=== PATIENT | male | born 1960 | race Caucasian/White ===

== ENCOUNTER 2022-03-16 18:52 | Inpatient (IN) | payer OTHER ==
[2022-03-16] MEDS ORDERED: ONDANSETRON 4 MG/2 ML INJ IV ONE (20:06)
[2022-03-16] MEDS ORDERED: SODIUM CHLORIDE 0.9% 500 ML 500 ML IV ONE (20:06)
--- NOTE | 2022-03-16 20:52 | XRay Report ---
CHEST 1 VIEW 03/16/2022 8:15 PM INDICATION / CLINICAL INFORMATION: Weakness. COMPARISON: None available. FINDINGS: SUPPORT DEVICES: None. HEART / MEDIASTINUM: No significant abnormality. LUNGS / PLEURA: No significant pulmonary abnormality. No significant pleural effusion. No pneumothora x. ADDITIONAL FINDINGS: No significant additional findings. IMPRESSION: 1. No acute abnormality of the chest. Signer Name: Leobardo Hui MD Signed: 03/16/2022 8:47 PM Workstation Name: [id number]
[2022-03-16 21:03] LABS: Basophils % (Auto) 0.1 % (0.0-1.8); Eosinophils % (Auto) 0.1 % (0.0-4.3); Hematocrit 39.9 % (35.5-45.6); Hemoglobin 13.4 gm/dl (11.8-15.2); Lymphocytes # (Auto) 0.9 K/mm3 (1.2-5.4); Lymphocytes % (Auto) 10.8 % (13.4-35.0); Mean Corpuscular HGB Conc 34 % (32-34); Mean Corpuscular Volume 93 fl (84-94); Monocytes # (Auto) 0.4 K/mm3 (0.0-0.8); Monocytes % (Auto) 5.3 % (0.0-7.3); Platelet Count 151 K/mm3 (140-440); Red Blood Count 4.31 M/mm3 (3.65-5.03); Red Cell Distribution Width 13.5 % (13.2-15.2)
[2022-03-16 21:32] LABS: Alanine Aminotransferase 74 units/L (7-56); BUN/Creatinine Ratio 13; Blood Urea Nitrogen 13 mg/dL (9-20); Calcium 9.3 mg/dL (8.4-10.2); Hemolysis Index 40
[2022-03-16] MEDS ORDERED: ASPIRIN 325 MG TAB PO ONE (22:32)
--- NOTE | 2022-03-16 22:32 | Emergency Department Report ---
ED General Adult HPI - General Chief complaint: Recheck/Abnormal Lab/Rx Stated complaint: ABNORMAL EKG Time Seen by Provider: 03/16/22 20:02 Source: patient, family Mode of arrival: Ambulatory Limitations: Language Barrier - History of Present Illness Initial comments: pt's daughter states pt has been vomiting x3 days, approx TID. Pt was seen at PCP and Friday. Was sent to the ED due to "abnormal EKG" pt was sent with copy of EKG that was completed 03/16/22 at 16:27. pt hs 61 years old john platt with DM and HTN was seen in clinic today and was sent here for abnormal ekg not chest pain , had negative covid PCR today -: Gradual, days(s) Severity scale (0 -10): 0 Improves with: none Worsens with: none Associated Symptoms: denies: denies other symptoms, confusion, chest pain Treatments Prior to Arrival: none - Related Data Allergies Allergy/AdvReac Type Severity Reaction Status Date / Time No Known Allergies Allergy Unverified 03/16/22 19:42 ED Review of Systems ROS: Stated complaint: ABNORMAL EKG Other details as noted in HPI Constitutional: denies: chills, fever Eyes: denies: eye pain, eye discharge, vision change ENT: denies: ear pain, throat pain Respiratory: denies: cough, shortness of breath, wheezing Cardiovascular: denies: chest pain, palpitations Endocrine: no symptoms reported Gastrointestinal: denies: abdominal pain, nausea, diarrhea Genitourinary: denies: urgency, dysuria Musculoskeletal: denies: back pain, joint swelling, arthralgia Skin: denies: rash, lesions Neurological: denies: headache, weakness, paresthesias Psychiatric: denies: anxiety, depression Hematological/Lymphatic: denies: easy bleeding, easy bruising ED Past Medical Hx - Past Medical History Previous Medical History?: Yes Hx Hypertension: Yes Hx Diabetes: Yes - Surgical History Past Surgical History?: No - Social History Smoking Status: Never Smoker Substance Use Type: None ED Physical Exam - General Limitations: Language Barrier General appearance: alert, in no apparent distress - Head Head exam: Present: atraumatic, normocephalic - Eye Eye exam: Present: normal appearance - ENT ENT exam: Present: mucous membranes moist - Neck Neck exam: Present: normal inspection - Respiratory Respiratory exam: Present: normal lung sounds bilaterally. Absent: respiratory distress - Cardiovascular Cardiovascular Exam: Present: regular rate, normal rhythm. Absent: systolic murmur, diastolic murmur, rubs, gallop - GI/Abdominal GI/Abdominal exam: Present: soft, normal bowel sounds - Rectal Rectal exam: Present: deferred - Extremities Exam Extremities exam: Present: normal inspection - Back Exam Back exam: Present: normal inspection - Neurological Exam Neurological exam: Present: alert, oriented X3 - Psychiatric Psychiatric exam: Present: normal affect, normal mood - Skin Skin exam: Present: warm, dry, intact, normal color. Absent: rash ED Course Vital Signs 03/16/22 03/16/22 03/16/22 19:35 19:44 20:46 Temperature 98.0 F 98.0 F Pulse Rate 76 83 Respiratory 18 23 Rate Blood Pressure 140/71 148/77 [Right] O2 Sat by Pulse 98 95 Oximetry ED Medical Decision Making - Lab Data Result diagrams: 03/16/22 20:41 03/16/22 20:41 - EKG Data -: EKG Interpreted by Me EKG shows normal: sinus rhythm - EKG Data Interpretation: nonspecific ST-T wave natividad, other (LAE , RBBB) - Radiology Data Radiology results: report reviewed, image reviewed - Medical Decision Making intial EKG showed possible Stemi, spoke with dr dacosta and sent him the EKG , pt doesn;t have chest pain , and no reciprocal changes, will admit for obs and card consult Critical care attestation.: If time is entered above; I have spent that time in minutes in the direct care of this critically ill patient, excluding procedure time. ED Disposition Clinical Impression: Abnormal EKG, Vomiting, CHF (congestive heart failure) Disposition: ADMITTED INPATIENT Is pt being admited?: Yes Does the pt Need Aspirin: Yes Condition: Stable
[2022-03-16] MEDS ORDERED: MORPHINE 2 MG/1 ML INJ IV PRN (22:33)
[2022-03-16] MEDS ORDERED: ONDANSETRON 4 MG/2 ML INJ IV PRN (22:33)
[2022-03-16] MEDS ORDERED: DEXTROSE 50% IN WATER (25GM) 50 ML SYRINGE IV PRN (22:33)
[2022-03-16] MEDS ORDERED: MORPHINE 4 MG/1 ML INJ IV PRN (22:33)
[2022-03-16] MEDS ORDERED: ACETAMINOPHEN 325 MG TAB PO PRN (22:33)
[2022-03-16] MEDS ORDERED: MAGNESIUM HYDROXIDE (MOM) ORAL LIQD UDC PO PRN (22:33)
--- NOTE | 2022-03-16 22:46 | History and Physical Report ---
History of Present Illness Date of examination: 03/16/22 Date of admission: 03/16/2022 Chief complaint: Nausea and Vomiting History of present illness: 61-year-old Bengali male with past medical history of hypertension and diabetes mellitus presenting in the emergency room today complaining of nausea and vomiting which has been ongoing for the past 3 days. He denies having any abdominal pain. Denies any fever or chills, denies any headache or dizziness and no diaphoresis. Patient denies any chest pain or shortness of breath. Patient denies any sick contacts and no recent travel. Denies any contact with anyone with COVID-19. Patient has been fully vaccinated against COVID-19. Most of the history was given by daughter who was able to interpret as patient does not speak Sami. Patient was seen evaluated in the clinic today and was sent to the emergency room by his primary care physician for abnormal EKG. Chest x-ray reveals no acute abnormality. Labs are reviewed shows elevated liver enzymes, alkaline phos and LDH. CT abdomen and pelvis still pending. Past History Past Medical History: diabetes, hypertension Past Surgical History: Other (Removal of Kidney stone) Social history: no significant social history Family history: no significant family history Medications and Allergies Allergies Allergy/AdvReac Type Severity Reaction Status Date / Time No Known Allergies Allergy Verified 03/16/22 22:43 Home Medications Medication Instructions Recorded Confirmed Last Taken Type Losartan [Cozaar] 50 mg PO QDAY 03/17/22 03/17/22 1 Day Ago History ~03/16/22 50 mg Metformin HCl [metFORMIN] 1,000 mg PO DAILY 03/17/22 03/17/22 1 Day Ago History ~03/16/22 1000 mg Rosuvastatin Calcium 20 mg PO DAILY 03/17/22 03/17/22 1 Day Ago History ~03/16/22 20 mg Review of Systems Constitutional: no fever, no chills Ears, nose, mouth and throat: no nasal congestion, no sore throat Cardiovascular: no chest pain, no orthopnea, no palpitations Respiratory: no cough, no shortness of breath Genitourinary Male: no dysuria, no hematuria, no flank pain Musculoskeletal: no neck pain, no low back pain Integumentary: no rash, no pruritis Neurological: no headaches, no confusion Psychiatric: no anxiety, no depression Endocrine: no polyphagia, no polydipsia, no polyuria, no nocturia Exam - Constitutional Vitals: Temp Pulse Resp BP Pulse Ox 98.0 F 83 23 148/77 95 03/16/22 19:44 03/16/22 20:46 03/16/22 20:46 03/16/22 20:46 03/16/22 20:46 General appearance: Present: no acute distress, well-nourished - EENT Eyes: Present: PERRL, EOM intact. Absent: scleral icterus ENT: hearing intact, clear oral mucosa, dentition normal - Neck Neck: Present: supple, normal ROM - Respiratory Respiratory effort: normal Respiratory: bilateral: CTA - Cardiovascular Rhythm: regular Heart Sounds: Present: S1 & S2. Absent: gallop, systolic murmur, diastolic murmur, rub, click - Extremities Extremities: no ischemia, pulses intact, pulses symmetrical, No edema, normal temperature, normal color, Full ROM Peripheral Pulses: within normal limits - Abdominal General gastrointestinal: Present: soft, non-tender, non-distended, normal bowel sounds. Absent: mass - Integumentary Integumentary: Present: clear, warm, dry, normal turgor. Absent: rash - Musculoskeletal Musculoskeletal: strength equal bilaterally - Psychiatric Psychiatric: appropriate mood/affect, intact judgment & insight, memory intact, cooperative - Neurologic Neurologic: CNII-XII intact, no focal deficits, moves all extremities HEART Score - HEART Score Troponin: Troponin T < 0.010 ng/mL (0.00-0.029) 03/16/22 20:41 Results - Labs CBC & Chem 7: 03/16/22 20:41 03/16/22 20:41 Labs: Abnormal lab results 03/16/22 03/16/22 03/16/22 Range/Units 20:41 20:41 20:41 Lymph % (Auto) 10.8 L (13.4-35.0) % Lymph # (Auto) 0.9 L (1.2-5.4) K/mm3 Seg Neutrophils % 83.7 H (40.0-70.0) % Carbon Dioxide 17 L (22-30) mmol/L Glucose 114 H (75-100) mg/dL Magnesium 1.60 L (1.7-2.3) mg/dL AST 69 H (5-40) units/L ALT 74 H (7-56) units/L Alkaline Phosphatase 208 H (35-129) units/L Lactate Dehydrogenase 205 H (91-180) units/L Total Creatine Kinase 307 H (55-170) units/L NT-Pro-B Natriuret Pep 2560 H (0-900) pg/mL Total Protein 6.2 L (6.3-8.2) g/dL Lipase 79 H (13-60) units/L Assessment and Plan - Patient Problems (1) CHF (congestive heart failure) Current Visit: No Status: Inactive Plan to address problem: Place patient on diuretics. We will monitor input and output and also monitor daily weight. She will be scheduled for echocardiogram. Consult placed to cardiology for evaluation. (2) Abnormal EKG Current Visit: No Status: Inactive Plan to address problem: Will await further evaluation by cardiology. (3) Vomiting Current Visit: No Status: Inactive Plan to address problem: Etiology is unclear. Patient placed on antiemetic and IV fluid.. Please consult to gastroenterology for evaluation in view of the abnormal LFTs.. (4) Hypertension Current Visit: No Status: Acute Plan to address problem: We will resume routine medications and monitor vital signs closely. (5) Diabetes mellitus Current Visit: No Status: Acute Plan to address problem: Patient placed on sliding scale insulin. We will monitor Accu-Cheks. (6) DVT prophylaxis Current Visit: No Status: Acute Plan to address problem: Patient placed on subcutaneous heparin. (7) Full code status Current Visit: No Status: Acute Plan to address problem: Patient is full code.
[2022-03-17 04:55] LABS: Bilirubin,Urine NEG (Negative); Blood,Urine MOD (Negative); Color,Urine Colorless (Yellow); Hyaline Casts,Urine 1 /LPF; RBC,Urine < 1.0 /HPF (0.0-6.0); Urobilinogen,Urine < 2.0 mg/dL (<2.0)
[2022-03-17] MEDS: FUROSEMIDE 40 MG/4 ML INJ IV SCH ×2 (05:54→21:23)
[2022-03-17] MEDS: INSULIN REGULAR, HUMAN 100 UNITS/1 ML SUB-Q SCH ×4 (08:45→23:44)
[2022-03-17 10:03] LABS: Calcium 6.8 mg/dL (8.4-10.2)
--- NOTE | 2022-03-17 10:16 | Consultation ---
History of Present Illness - Reason for Consult Consult date: 03/17/22 Abnormal LFTs Requesting physician: SHYANNE CALLEJAS - History of Present Illness Mr. 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 He initially presented to his PCP with a 3-day history of intermittent nausea and vomiting occurring approximately 3 times a day. There was no abdominal pain. Symptoms appear to be associated with p.o. intake. He also had some fatigue as well as mild chills, symptoms all starting on March 14. He denies any prior similar symptoms. There was no GI bleeding. He is not aware of a fever though there may have been a low-grade 1. He does complain of hiccups now. Currently, he is feeling well. Bowel movements are regular on a daily basis without any change. Of note, patient is status postcholecystectomy for gallstones over 6 years ago. He denies any known history of hepatitis or liver disease. History is obtained from his daughter who is doing the translating. Past History Past Medical History: diabetes, hypertension, hyperlipidemia Past Surgical History: cholecystectomy, Other (Removal of Kidney stone -with left flank incision) Social history: no significant social history Family history: no significant family history Medications and Allergies Allergies Allergy/AdvReac Type Severity Reaction Status Date / Time No Known Allergies Allergy Verified 03/16/22 22:43 Home Medications Medication Instructions Recorded Confirmed Last Taken Type Losartan [Cozaar] 50 mg PO QDAY 03/17/22 03/17/22 1 Day Ago History ~03/16/22 50 mg Metformin HCl [metFORMIN] 1,000 mg PO DAILY 03/17/22 03/17/22 1 Day Ago History ~03/16/22 1000 mg Rosuvastatin Calcium 20 mg PO DAILY 03/17/22 03/17/22 1 Day Ago History ~03/16/22 20 mg Active Meds: Active Medications Acetaminophen (Acetaminophen 325 Mg Tab) 650 mg PO Q4H PRN PRN Reason: Pain MILD(1-3)/Fever >100.5/DIAZ Dextrose (Dextrose 50% In Water (25gm) 50 Ml Syringe) 50 ml IV Q30MIN PRN; Protocol PRN Reason: Hypoglycemia Furosemide (Furosemide 40 Mg/4 Ml Inj) 40 mg IV BID@0600,1800 N[facility] Last Admin: 03/17/22 05:54 Dose: 40 mg Insulin Human Regular (Insulin Regular, Human 100 Units/1 Ml) 0 units SUB-Q ACHS NICK; Protocol Last Admin: 03/17/22 08:45 Dose: Not Given Magnesium Hydroxide (Magnesium Hydroxide (Mom) Oral Liqd Udc) 30 ml PO Q4H PRN PRN Reason: Constipation Morphine Sulfate (Morphine 2 Mg/1 Ml Inj) 2 mg IV Q4H PRN PRN Reason: Pain, Moderate (4-6) Morphine Sulfate (Morphine 4 Mg/1 Ml Inj) 4 mg IV Q4H PRN PRN Reason: Pain , Severe (7-10) Ondansetron HCl (Ondansetron 4 Mg/2 Ml Inj) 4 mg IV Q8H PRN PRN Reason: Nausea And Vomiting Last Admin: 03/17/22 01:15 Dose: 4 mg Sodium Chloride (Sodium Chloride 0.9% 10 Ml Flush Syringe) 10 ml IV BID NICK Sodium Chloride (Sodium Chloride 0.9% 10 Ml Flush Syringe) 10 ml IV PRN PRN PRN Reason: LINE FLUSH Review of Systems All systems: negative (As per HPI) Exam - Constitutional Vitals: Temp Pulse Resp BP Pulse Ox 98.6 F 76 16 137/71 99 03/17/22 07:31 03/17/22 07:31 03/17/22 07:31 03/17/22 07:31 03/17/22 07:31 General appearance: Present: no acute distress - EENT Eyes: Present: PERRL, EOM intact. Absent: scleral icterus ENT: hearing intact - Respiratory Respiratory effort: normal Respiratory: bilateral: CTA - Cardiovascular Rhythm: regular Heart Sounds: Present: S1 & S2 - Extremities Extremities: No edema - Abdominal General gastrointestinal: Present: soft, non-tender Results - Labs CBC & Chem 7: 03/16/22 20:41 03/17/22 07:29 Labs: Abnormal lab results 03/16/22 03/16/22 03/16/22 Range/Units 20:41 20:41 20:41 Lymph % (Auto) 10.8 L (13.4-35.0) % Lymph # (Auto) 0.9 L (1.2-5.4) K/mm3 Seg Neutrophils % 83.7 H (40.0-70.0) % Sodium (137-145) mmol/L Chloride (98-107) mmol/L Carbon Dioxide 17 L (22-30) mmol/L BUN (9-20) mg/dL Creatinine (0.8-1.3) mg/dL Glucose 114 H (75-100) mg/dL Calcium (8.4-10.2) mg/dL Magnesium 1.60 L (1.7-2.3) mg/dL AST 69 H (5-40) units/L ALT 74 H (7-56) units/L Alkaline Phosphatase 208 H (35-129) units/L Lactate Dehydrogenase 205 H (91-180) units/L Total Creatine Kinase 307 H (55-170) units/L NT-Pro-B Natriuret Pep 2560 H (0-900) pg/mL Total Protein 6.2 L (6.3-8.2) g/dL Lipase 79 H (13-60) units/L 05// Range/Units 07:29 Lymph % (Auto) (13.4-35.0) % Lymph # (Auto) (1.2-5.4) K/mm3 Seg Neutrophils % (40.0-70.0) % Sodium 111 L* D (137-145) mmol/L Chloride 76.5 L (98-107) mmol/L Carbon Dioxide 7 L* D (22-30) mmol/L BUN 74 H (9-20) mg/dL Creatinine 7.9 H D (0.8-1.3) mg/dL Glucose 63 L (75-100) mg/dL Calcium 6.8 L D (8.4-10.2) mg/dL Magnesium (1.7-2.3) mg/dL AST (5-40) units/L ALT (7-56) units/L Alkaline Phosphatase (35-129) units/L Lactate Dehydrogenase (91-180) units/L Total Creatine Kinase (55-170) units/L NT-Pro-B Natriuret Pep (0-900) pg/mL Total Protein (6.3-8.2) g/dL Lipase (13-60) units/L Assessment and Plan 1. Abnormal liver enzymesalong with 3-day history of nausea and vomiting. Symptoms concerning for possible choledocholithiasis. Acute viral illness with nausea, vomiting and abnormal liver enzymes is also a consideration. Currently, patient is doing well. -Check MRCP -Check viral serologies -Advance diet, and monitor liver enzyme 2. Abnormal BMPprobably a mistake and will need to be repeated since these numbers are extremely abnormal and inconsistent with a normal BMP from yesterday , especially as the patient is doing well clinically.
--- NOTE | 2022-03-17 10:42 | Consultation ---
History of Present Illness Consult date: 03/17/22 Consult reason: congestive heart failure History of present illness: 61-year-old male with past medical history of hypertension and diabetes for whom cardiology consultation is requested for elevated BNP. Daughter at bedside provides history. Patient reports vomiting and decreased p.o. intake. He denies any chest pain, shortness of breath, palpitations, or leg swelling. He has no prior cardiac history. Work-up in the ED notable for EKG without acute ischemic changes, troponin x1 negative, BNP elevated 2560, elevated LFTs, and lipase 79. Past History Past Medical History: diabetes, hypertension, hyperlipidemia Past Surgical History: cholecystectomy, Other (Removal of Kidney stone -with left flank incision) Social history: no significant social history Family history: no significant family history Medications and Allergies Allergies Allergy/AdvReac Type Severity Reaction Status Date / Time No Known Allergies Allergy Verified 03/16/22 22:43 Home Medications Medication Instructions Recorded Confirmed Last Taken Type Losartan [Cozaar] 50 mg PO QDAY 03/17/22 03/17/22 1 Day Ago History ~03/16/22 50 mg Metformin HCl [metFORMIN] 1,000 mg PO DAILY 03/17/22 03/17/22 1 Day Ago History ~03/16/22 1000 mg Rosuvastatin Calcium 20 mg PO DAILY 03/17/22 03/17/22 1 Day Ago History ~03/16/22 20 mg Active Meds: Active Medications Acetaminophen (Acetaminophen 325 Mg Tab) 650 mg PO Q4H PRN PRN Reason: Pain MILD(1-3)/Fever >100.5/DIAZ Dextrose (Dextrose 50% In Water (25gm) 50 Ml Syringe) 50 ml IV Q30MIN PRN; Protocol PRN Reason: Hypoglycemia Furosemide (Furosemide 40 Mg/4 Ml Inj) 40 mg IV BID@0600,1800 [facility] Last Admin: 03/17/22 05:54 Dose: 40 mg Insulin Human Regular (Insulin Regular, Human 100 Units/1 Ml) 0 units SUB-Q ACHS [facility]; Protocol Last Admin: 03/17/22 08:45 Dose: Not Given Magnesium Hydroxide (Magnesium Hydroxide (Mom) Oral Liqd Udc) 30 ml PO Q4H PRN PRN Reason: Constipation Morphine Sulfate (Morphine 2 Mg/1 Ml Inj) 2 mg IV Q4H PRN PRN Reason: Pain, Moderate (4-6) Morphine Sulfate (Morphine 4 Mg/1 Ml Inj) 4 mg IV Q4H PRN PRN Reason: Pain , Severe (7-10) Ondansetron HCl (Ondansetron 4 Mg/2 Ml Inj) 4 mg IV Q8H PRN PRN Reason: Nausea And Vomiting Last Admin: 03/17/22 01:15 Dose: 4 mg Sodium Chloride (Sodium Chloride 0.9% 10 Ml Flush Syringe) 10 ml IV BID NICK Sodium Chloride (Sodium Chloride 0.9% 10 Ml Flush Syringe) 10 ml IV PRN PRN PRN Reason: LINE FLUSH Physical Examination Vital Signs Temp 98.0 F 03/16/22 19:35 Narrative exam: Gen-NAD, cooperative HEENT - normcephalic, atraumatic CV-RRR, no murmur Lungs-CTAB, no increased WOB Abd-soft/nt/nd Ext-no edema, warm to touch Neuro-alert and oriented, no focal deficits noted Psych-affect appropriate Results 03/16/22 20:41 03/17/22 07:29 Cardiac Enzymes 03/16/22 03/16/22 Range/Units 20:41 20:41 AST 69 H (5-40) units/L Lactate Dehydrogenase 205 H (91-180) units/L CBC 03/16/22 Range/Units 20:41 WBC 8.4 (4.5-11.0) K/mm3 RBC 4.31 (3.65-5.03) M/mm3 Hgb 13.4 (11.8-15.2) gm/dl Hct 39.9 (35.5-45.6) % Plt Count 151 (140-440) K/mm3 Lymph # (Auto) 0.9 L (1.2-5.4) K/mm3 Gates # (Auto) 0.4 (0.0-0.8) K/mm3 Eos # (Auto) 0.0 (0.0-0.4) K/mm3 Baso # (Auto) 0.0 (0.0-0.1) K/mm3 Comprehensive Metabolic Panel 03/16/22 03/17/22 Range/Units 20:41 07:29 Sodium 140 111 L* D (137-145) mmol/L Potassium 4.9 4.7 (3.6-5.0) mmol/L Chloride 104.8 76.5 L (98-107) mmol/L Carbon Dioxide 17 L 7 L* D (22-30) mmol/L BUN 13 74 H (9-20) mg/dL Creatinine 1.0 7.9 H D (0.8-1.3) mg/dL Glucose 114 H 63 L (75-100) mg/dL Calcium 9.3 6.8 L D (8.4-10.2) mg/dL AST 69 H (5-40) units/L ALT 74 H (7-56) units/L Alkaline Phosphatase 208 H (35-129) units/L Total Protein 6.2 L (6.3-8.2) g/dL Albumin 4.0 (3.9-5) g/dL Telemetrysinus rhythm 03/16/2022 EKGsinus rhythm, bifascicular block (RBBB + LPFB), lateral T wave inversion Assessment and Plan #Elevated BNP #Bifascicular block on EKG (RBBB + LPFB) #Vomitinglipase elevated #Abnormal LFTs #Hypertension #Diabetes Await echocardiogram. Agree with IV diuresis; monitor renal function. Unclear if labs drawn today are accurate; RN notifying primary team. Agree with GI consult for abdominal symptoms.
[2022-03-17 11:41] LABS: Calcium 6.8 mg/dL (8.4-10.2)
--- NOTE | 2022-03-17 12:14 | Cat Scan Report ---
CT ABDOMEN AND PELVIS WITH CONTRAST INDICATION: Nausea and vomiting, abdominal LFTs. TECHNIQUE: Axial CT images were obtained through the abdomen and pelvis after IV contrast. All CT scans at this location are performed using CT dose reduction for ALARA by means of automated exposure control. COMPARISON: None available. FINDINGS: LOWER CHEST: Tiny bilateral pleural effusions. LIVER: No significant abnormality. GALLBLADDER: Surgically absent BILE DUCTS: No significant abnormality. PANCREAS: No significant abnormality. SPLEEN: No significant abnormality. ADRENALS: No significant abnormality. RIGHT KIDNEY and URETER: Nonobstructing 5 mm intrarenal stone LEFT KIDNEY and URETER: Nonobstructing 5 mm intrarenal stone. Mild left hydronephrosis STOMACH and SMALL BOWEL: No significant abnormality. COLON: No significant abnormality. APPENDIX: No significant abnormality. PERITONEUM: No free fluid. No free air. No fluid collection. LYMPH NODES: No significant adenopathy. AORTA and ARTERIES: Moderate vascular calcifications nonaneurysmal aorta IVC and VEINS: No significant abnormality. URINARY BLADDER: No significant abnormality. REPRODUCTIVE ORGANS: No significant abnormality. ADDITIONAL FINDINGS: None. SKELETAL SYSTEM: No significant abnormality. IMPRESSION: 1. Bilateral nephrolithiasis. 2. Mild left hydronephrosis without visualized ureteral stone may be secondary to recently passed sto ne. 3. Tiny bilateral pleural effusions. Signer Name: Tyrone Patel MD Signed: 03/17/2022 12:09 PM Workstation Name: [id number]
[2022-03-17 13:04] LABS: Hepatitis B Surface Antigen Non-Reactive (Negative); Hepatitis C Virus Antibody Non-Reactive (NonReactive)
[2022-03-17] MEDS ORDERED: SODIUM CHLORIDE 0.9% 1000 ML 1,000 ML IV ONE (14:00)
[2022-03-17] MEDS ORDERED: SODIUM CHLORIDE 0.9% 1000 ML 1,000 ML IV SCH (15:00)
--- NOTE | 2022-03-17 15:33 | Progress Note ---
Assessment and Plan 61-year-old Lebanese male with past medical history of hypertension and diabetes mellitus presenting in the emergency room today complaining of nausea and vomiting which has been ongoing for the past 3 days. Work-up in the ED notable for EKG without acute ischemic changes, troponin x1 negative, BNP elevated 2560, elevated LFTs, and lipase 79. BMP this morning shows sodium 111, creatinine 7.9. Assessment and plan: #Severe hyponatremia #CLARISSA, possible ATN #Elevated BNP #Bifascicular block on EKG (RBBB + LPFB) #Nausea and vomitinglipase elevated #Abnormal LFTs #Hypertension #Diabetes Await echocardiogram. Placed on IV fluid; monitor renal function. Unclear if labs drawn today are accurate; consulted nephrology Follow BMP every 6 hours Subjective Date of service: 03/17/22 Interval history: Patient seen and examined. Medical records and medication list reviewed. No acute event overnight noted by the RN. Patient denies any chest pain or difficulty breathing. No nausea or vomiting today Discussed plan of care at bedside with patient's daughter. Objective - Exam Narrative Exam: GENERAL: well-developed and well-nourished male lying on bed appeared to be in no discomfort. HEENT: Normocephalic. Atraumatic. No conjunctival congestion or icterus. Patient has moist mucous membranes. NECK: Supple. Trachea midline. CHEST/LUNGS: Clear to auscultated bilaterally, breathing nonlabored. No wheezes crackles or rhonchi. HEART/CARDIOVASCULAR: Regular in rate and rhythm. S1 and S2 positive. ABDOMEN: Abdomen is soft, nontender. Patient has normal bowel sounds. SKIN: There is no rash. Warm and dry. NEURO: No focal motor deficit. Follows command. MUSCULOSKELETAL: No joint effusion or tenderness. EXTRIMITY: No edema, no cyanosis or clubbing. PSYCH: Cooperative. - Constitutional Vitals: Vital Signs - 12hr 03/17/22 03/17/22 03/17/22 04:11 07:31 07:32 Temperature 97.8 F 98.6 F Pulse Rate 74 76 79 Respiratory 15 16 Rate Blood Pressure 125/65 137/71 O2 Sat by Pulse 100 99 Oximetry 03/17/22 03/17/22 03/17/22 10:00 10:51 11:32 Temperature 98.2 F Pulse Rate 79 79 Respiratory 18 Rate Blood Pressure 132/69 O2 Sat by Pulse 100 97 Oximetry - Labs CBC & Chem 7: 03/16/22 20:41 03/18/22 04:12 Labs: Abnormal lab results 03/16/22 03/16/22 03/16/22 Range/Units 20:41 20:41 20:41 Lymph % (Auto) 10.8 L (13.4-35.0) % Lymph # (Auto) 0.9 L (1.2-5.4) K/mm3 Seg Neutrophils % 83.7 H (40.0-70.0) % Sodium (137-145) mmol/L Potassium (3.6-5.0) mmol/L Chloride (98-107) mmol/L Carbon Dioxide 17 L (22-30) mmol/L BUN (9-20) mg/dL Creatinine (0.8-1.3) mg/dL Glucose 114 H (75-100) mg/dL POC Glucose (70-105) mg/dL Calcium (8.4-10.2) mg/dL Magnesium 1.60 L (1.7-2.3) mg/dL AST 69 H (5-40) units/L ALT 74 H (7-56) units/L Alkaline Phosphatase 208 H (35-129) units/L Lactate Dehydrogenase 205 H (91-180) units/L Total Creatine Kinase 307 H (55-170) units/L NT-Pro-B Natriuret Pep 2560 H (0-900) pg/mL Total Protein 6.2 L (6.3-8.2) g/dL Lipase 79 H (13-60) units/L 03/17/22 03/17/22 03/17/22 Range/Units 07:28 07:29 10:46 Lymph % (Auto) (13.4-35.0) % Lymph # (Auto) (1.2-5.4) K/mm3 Seg Neutrophils % (40.0-70.0) % Sodium 111 L* D (137-145) mmol/L Potassium (3.6-5.0) mmol/L Chloride 76.5 L (98-107) mmol/L Carbon Dioxide 7 L* D (22-30) mmol/L BUN 74 H (9-20) mg/dL Creatinine 7.9 H D (0.8-1.3) mg/dL Glucose 63 L (75-100) mg/dL POC Glucose 62 L 68 L (70-105) mg/dL Calcium 6.8 L D (8.4-10.2) mg/dL Magnesium (1.7-2.3) mg/dL AST (5-40) units/L ALT (7-56) units/L Alkaline Phosphatase (35-129) units/L Lactate Dehydrogenase (91-180) units/L Total Creatine Kinase (55-170) units/L NT-Pro-B Natriuret Pep (0-900) pg/mL Total Protein (6.3-8.2) g/dL Lipase (13-60) units/L 03/17/22 Range/Units 10:47 Lymph % (Auto) (13.4-35.0) % Lymph # (Auto) (1.2-5.4) K/mm3 Seg Neutrophils % (40.0-70.0) % Sodium 111 L* (137-145) mmol/L Potassium 5.8 H D (3.6-5.0) mmol/L Chloride 75.7 L (98-107) mmol/L Carbon Dioxide 12 L (22-30) mmol/L BUN 74 H (9-20) mg/dL Creatinine 7.9 H (0.8-1.3) mg/dL Glucose 67 L (75-100) mg/dL POC Glucose (70-105) mg/dL Calcium 6.8 L (8.4-10.2) mg/dL Magnesium (1.7-2.3) mg/dL AST (5-40) units/L ALT (7-56) units/L Alkaline Phosphatase (35-129) units/L Lactate Dehydrogenase (91-180) units/L Total Creatine Kinase (55-170) units/L NT-Pro-B Natriuret Pep (0-900) pg/mL Total Protein (6.3-8.2) g/dL Lipase (13-60) units/L HEART Score - HEART Score Troponin: Troponin T < 0.010 ng/mL (0.00-0.029) 03/16/22 20:41
[2022-03-17 15:42] LABS: Calcium 7.1 mg/dL (8.4-10.2)
[2022-03-17] MEDS: SODIUM CHLORIDE 0.9% 1000 ML 1,000 ML IV SCH (19:45)
[2022-03-17 20:13] LABS: BUN/Creatinine Ratio TNR; Blood Urea Nitrogen TNR mg/dL (9-20)
[2022-03-17 20:14] LABS: Calcium TNR mg/dL (8.4-10.2); Hemolysis Index TNR
[2022-03-17 22:57] LABS: Calcium 6.9 mg/dL (8.4-10.2)
[2022-03-18 05:36] LABS: Calcium 7.1 mg/dL (8.4-10.2)
[2022-03-18] MEDS: FUROSEMIDE 40 MG/4 ML INJ IV SCH (06:47)
[2022-03-18] MEDS: SODIUM CHLORIDE 0.9% 1000 ML 1,000 ML IV SCH ×2 (06:52→23:17)
[2022-03-18] MEDS: INSULIN REGULAR, HUMAN 100 UNITS/1 ML SUB-Q SCH ×4 (08:55→21:45)
--- NOTE | 2022-03-18 10:04 | Magnetic Resonance Report ---
MR ABDOMEN MRCP HISTORY: Abnormal liver enzymes, nausea, vomiting TECHNIQUE: Multisequence, multiplanar MRI without contrast. Coronal thin collimation MRCP images and radial MRCP images. COMPARISON: CT abdomen pelvis with contrast performed the same day FINDINGS: The gallbladder has been surgically removed. No biliary dilatation is appreciated. The common bile du ct measures 4-5 mm in diameter. There is no evidence for stricture or choledocholithiasis. The intrah epatic biliary ducts and pancreatic duct are unremarkable. The liver, pancreas, spleen, adrenal glands, and visualized bowel loops are unremarkable. Previously described renal stones are not clearly demonstrated on MRI. There is no evidence for hydronephrosis. There are 3 or 4 simple appearing cysts in the superior left kidney measuring up to 1 cm. No evidence for ascites, adenopathy or inflammatory changes. The vascular structures are patent. Trac e pleural effusions are noted at both lung bases. IMPRESSION: Cholecystectomy. Otherwise unremarkable MRCP. Simple appearing left renal cysts. Trace bilateral pleural effusions. Signer Name: Fidencio Khan Jr, MD Signed: 03/18/2022 9:59 AM Workstation Name: [id number]
--- NOTE | 2022-03-18 10:53 | Consultation ---
History of Present Illness - Reason for Consult Consult date: 03/18/22 acute renal failure, hyponatremia - History of Present Illness The patient is a 61 YO [place] male with past medical history of Hypertension and Diabetes mellitus who presented to [facility] ED 03/16/22 with complaining of nausea and vomiting for about 3 days. Wheel Cleaner line was used to get information but patient is a very poor historian. He denies any abdominal pain, fever or chills, headache, dizziness, weakness, cp or sob. No h/o sick contacts, recent travel and contact with anyone with COVID-19. Patient has been fully vaccinated against COVID-19. Patient was seen at pcp's office and was sent to the Emergency room for abnormal EKG. Chest X-ray revealed no acute abnormality. Labs notable for Creat 7.9, BUN 74, Sodium 111, bicarb [address] abdomen and pelvis showed b/l nephrolithiasis and mild L hydronephrosis. Nephrology was consulted for further evaluation and treatment of CLARISSA. Past History Past Medical History: diabetes, hypertension, hyperlipidemia Past Surgical History: cholecystectomy, Other (Removal of Kidney stone -with left flank incision) Social history: no significant social history Family history: no significant family history Medications and Allergies Allergies Allergy/AdvReac Type Severity Reaction Status Date / Time No Known Allergies Allergy Verified 03/18/22 10:12 Home Medications Medication Instructions Recorded Confirmed Last Taken Type Losartan [Cozaar] 50 mg PO QDAY 03/17/22 03/18/22 1 Day Ago History ~03/16/22 50 mg Metformin HCl [metFORMIN] 1,000 mg PO BID 03/17/22 03/18/22 1 Day Ago History ~03/16/22 1000 mg Rosuvastatin Calcium 20 mg PO DAILY 03/17/22 03/18/22 1 Day Ago History ~03/16/22 20 mg Active Meds: Active Medications Acetaminophen (Acetaminophen 325 Mg Tab) 650 mg PO Q4H PRN PRN Reason: Pain MILD(1-3)/Fever >100.5/DIAZ Dextrose (Dextrose 50% In Water (25gm) 50 Ml Syringe) 50 ml IV Q30MIN PRN; Protocol PRN Reason: Hypoglycemia Sodium Chloride (Nacl 0.9% 1000 Ml) 1,000 mls @ 75 mls/hr IV DIRECT NICK Last Admin: 03/18/22 06:52 Dose: 75 mls/hr Insulin Human Regular (Insulin Regular, Human 100 Units/1 Ml) 0 units SUB-Q ACHS NICK; Protocol Last Admin: 03/18/22 08:55 Dose: Not Given Magnesium Hydroxide (Magnesium Hydroxide (Mom) Oral Liqd Udc) 30 ml PO Q4H PRN PRN Reason: Constipation Morphine Sulfate (Morphine 2 Mg/1 Ml Inj) 2 mg IV Q4H PRN PRN Reason: Pain, Moderate (4-6) Morphine Sulfate (Morphine 4 Mg/1 Ml Inj) 4 mg IV Q4H PRN PRN Reason: Pain , Severe (7-10) Ondansetron HCl (Ondansetron 4 Mg/2 Ml Inj) 4 mg IV Q8H PRN PRN Reason: Nausea And Vomiting Last Admin: 03/17/22 01:15 Dose: 4 mg Sodium Chloride (Sodium Chloride 0.9% 10 Ml Flush Syringe) 10 ml IV BID NICK Last Admin: 03/18/22 10:01 Dose: Not Given Sodium Chloride (Sodium Chloride 0.9% 10 Ml Flush Syringe) 10 ml IV PRN PRN PRN Reason: LINE FLUSH Review of Systems All systems: negative Exam - Vital Signs Vital signs: Vital Signs Temp 98.0 F 03/16/22 19:35 Results - Lab Results 03/19/22 03:47 03/19/22 03:47 Most recent lab results Calcium 7.1 mg/dL (8.4-10.2) L 03/18/22 04:12 Magnesium 1.60 mg/dL (1.7-2.3) L 03/16/22 20:41 Assessment and Plan 1. Acute kidney injury: Admitted with very high creatinine level. Baseline renal function is unknown. Likely vasomotor CLARISSA in the setting of volume depletion. ATN. CT showed b/l nephrolithiasis and mild L hydronephrosis. Urine studies. Continue IV fluids. Monitor renal function. Renal prognosis is guarded. Avoid nephrotoxic agents. Meds dosage based on GFR. Monitor for SPINNER FIXER needs. 2. Hyponatremia: Likely 2/2 volume depletion. Sr and Ur Osm. Continue IV fluids Monitor Sodium level. 3. FEN: Anion-gap metabolic acidosis, 2/2 CLARISSA + Metformin. IV fluids, Sod, bicarb, monitor. Monitor lytes and volume status. 4. DM-2: Monitor. 5. H/o Hypertension: Monitor BP. Subjective: Patient was seen and examined at the bedside. Examination: General appearance: well-developed, appears stated age, thin built, no distress HEENT: atraumatic, pupils equal Neck: trachea midline Respiratory: ctab Heart: S1S2, regular, no murmur Abdomen: soft, bowel sounds heard, NT Integumentary: no obvious rash noted Neurologic: conversing, able to move extremities Ext: no edema noted
--- NOTE | 2022-03-18 11:05 | Gastroenterology Progress Note ---
<WILLI LOCKETT - Last Filed: 03/18/22 11:10> Assessment and Plan 1. Elevated LFTs - recheck labs today, if tending down/stable, suspect elevation was from an acute infection that is resolving - MRCP: read pending 2. N/V - resolved - can start on cardiac diet as tolerated If LFTs are trending down/stable, MRCP read is normal, and pt is tolerating PO intake, GI will sign off Subjective Date of service: 03/18/22 Principal diagnosis: elevated LFTs, N/V Interval history: Pt seen and examined. Laying comfortably in bed. Denies N/V, abd pain. No signs of upper/lower GI bleeding. Pt denies having any food yet. Okay for pt to start eating. Objective - Constitutional Vitals: Temp Pulse Resp BP Pulse Ox 98.1 F 91 H 22 103/60 98 03/18/22 07:17 03/18/22 07:17 03/18/22 07:17 03/18/22 07:17 03/18/22 07:20 General appearance: no acute distress - EENT Eyes: PERRL, EOM intact ENT: hearing intact - Respiratory Respiratory effort: normal - Cardiovascular Rhythm: regular - Extremities Extremities: No edema, normal color, Full ROM - Gastrointestinal General gastrointestinal: Present: soft, non-tender - Integumentary Integumentary: Present: clear, warm, dry - Neurologic Neurological: alert and oriented x3 - Psychiatric Psychiatric: appropriate mood/affect - Labs CBC & Chem 7: 03/16/22 20:41 03/18/22 04:12 Labs: Laboratory Results - last 24 hr 03/17/22 03/17/22 03/17/22 07:29 10:46 10:47 Sodium 111 L* Potassium 5.8 H D Chloride 75.7 L Carbon Dioxide 12 L Anion Gap 29 BUN 74 H Creatinine 7.9 H Estimated GFR 7 BUN/Creatinine Ratio 9 Glucose 67 L POC Glucose 68 L Calcium 6.8 L Hepatitis A IgM Ab Non-reactive Hep Bs Antigen Non-reactive Hep B Core IgM Ab Non-reactive Hepatitis C Antibody Non-reactive 03/17/22 03/17/22 03/17/22 14:29 15:44 19:10 Sodium 110 L* TNR Potassium 6.0 H TNR Chloride 74.4 L TNR Carbon Dioxide 13 L TNR Anion Gap 29 TNR BUN 75 H TNR Creatinine 7.8 H TNR Estimated GFR 7 TNR BUN/Creatinine Ratio 10 TNR Glucose 88 TNR POC Glucose 83 Calcium 7.1 L TNR Hepatitis A IgM Ab Hep Bs Antigen Hep B Core IgM Ab Hepatitis C Antibody 03/17/22 03/17/22 03/18/22 20:52 22:19 04:12 Sodium 119 L* D 122 L Potassium 4.3 D 4.3 Chloride 82.5 L 83.6 L Carbon Dioxide 13 L 15 L Anion Gap 28 28 BUN 72 H 72 H Creatinine 7.3 H 6.9 H Estimated GFR 8 8 BUN/Creatinine Ratio 10 10 Glucose 95 92 POC Glucose 125 H Calcium 6.9 L 7.1 L Hepatitis A IgM Ab Hep Bs Antigen Hep B Core IgM Ab Hepatitis C Antibody 03/18/22 07:11 Sodium Potassium Chloride Carbon Dioxide Anion Gap BUN Creatinine Estimated GFR BUN/Creatinine Ratio Glucose POC Glucose 94 Calcium Hepatitis A IgM Ab Hep Bs Antigen Hep B Core IgM Ab Hepatitis C Antibody <JAC VALDIVIA R - Last Filed: 03/18/22 18:21> Assessment and Plan MRCP negative, and LFTs are normal. Will sign off. Thanks. Objective - Constitutional Vitals: Temp Pulse Resp BP Pulse Ox 98.5 F 77 20 102/60 97 03/18/22 15:59 03/18/22 15:59 03/18/22 15:59 03/18/22 15:59 03/18/22 15:59 - Labs CBC & Chem 7: 03/16/22 20:41 03/18/22 10:33 Labs: Laboratory Results - last 24 hr 03/17/22 03/17/22 03/17/22 15:44 19:10 20:52 Sodium TNR Potassium TNR Chloride TNR Carbon Dioxide TNR Anion Gap TNR BUN TNR Creatinine TNR Estimated GFR TNR BUN/Creatinine Ratio TNR Glucose TNR POC Glucose 83 125 H Osmolality Calcium TNR Total Bilirubin Direct Bilirubin Indirect Bilirubin AST ALT Alkaline Phosphatase Total Protein Albumin Albumin/Globulin Ratio 03/17/22 03/18/22 03/18/22 22:19 04:12 07:11 Sodium 119 L* D 122 L Potassium 4.3 D 4.3 Chloride 82.5 L 83.6 L Carbon Dioxide 13 L 15 L Anion Gap 28 28 BUN 72 H 72 H Creatinine 7.3 H 6.9 H Estimated GFR 8 8 BUN/Creatinine Ratio 10 10 Glucose 95 92 POC Glucose 94 Osmolality Calcium 6.9 L 7.1 L Total Bilirubin Direct Bilirubin Indirect Bilirubin AST ALT Alkaline Phosphatase Total Protein Albumin Albumin/Globulin Ratio 03/18/22 03/18/22 03/18/22 10:33 11:27 12:13 Sodium 126 L Potassium 4.6 Chloride 85.1 L Carbon Dioxide 16 L Anion Gap 30 BUN 69 H Creatinine 6.6 H Estimated GFR 9 BUN/Creatinine Ratio 10 Glucose 104 H POC Glucose 140 H Osmolality 295 Calcium 7.5 L Total Bilirubin 0.40 Direct Bilirubin < 0.2 Indirect Bilirubin 0.2 AST 20 ALT 24 Alkaline Phosphatase 82 Total Protein 8.4 H D Albumin 5.0 Albumin/Globulin Ratio 1.5 03/18/22 15:59 Sodium Potassium Chloride Carbon Dioxide Anion Gap BUN Creatinine Estimated GFR BUN/Creatinine Ratio Glucose POC Glucose 220 H Osmolality Calcium Total Bilirubin Direct Bilirubin Indirect Bilirubin AST ALT Alkaline Phosphatase Total Protein Albumin Albumin/Globulin Ratio
[2022-03-18 11:56] LABS: Alanine Aminotransferase 24 units/L (7-56); Blood Urea Nitrogen 69 mg/dL (9-20); Calcium 7.5 mg/dL (8.4-10.2); Hemolysis Index 7
[2022-03-18 11:57] LABS: BUN/Creatinine Ratio 10; Bilirubin,Direct < 0.2 mg/dL (0-0.2)
--- NOTE | 2022-03-18 12:06 | Progress Note ---
Assessment and Plan - Patient Problems (1) Abnormal ECG Current Visit: Yes Status: Acute Plan to address problem: Patient's ECG abnormalities likely chronic, there are no cardiac complaints at this time, and echocardiogram shows normal left ventricular systolic function with ejection fraction 60 to 65%. No further cardiac work-up is indicated in the absence of cardiac symptoms, but patient needs outpatient cardiac follow-up. We will sign off. I will defer to internal medicine and nephrology for management of the patient's primary presenting hyponatremia and severe renal failure. Subjective Date of service: 03/18/22 Principal diagnosis: elevated LFTs, N/V Interval history: 61-year-old man admitted with symptoms of nausea and vomiting, no cardiac complaints. Cardiology consultation was requested for the finding of EKG abnormalities, with a right bundle branch block and left anterior fascicular block, both of which are likely chronic. An echocardiogram ordered as a result shows normal left ventricular systolic function, ejection fraction 60 to 65%. The patient's laboratory values show multiple abnormalities including severe h yponatremia of 111, severe renal failure with creatinine of 7.9, and abnormal liver enzymes. It to be noted that on his presentation the chemistry labs were much more benign with a sodium of 140 and a creatinine of 1.0, but the next day levels of much lower sodium and much higher creatinine levels suggest the initial labs may have the belonged to a different patient. Objective Vital Signs Temp Pulse Resp BP BP Pulse Ox 03/18/22 07:20 98 03/18/22 07:17 98.1 F 91 H 22 103/60 97 03/18/22 07:16 22 103/60 03/18/22 03:04 98.3 F 85 18 97/58 96 03/17/22 23:17 98.2 F 78 18 111/58 98 03/17/22 23:00 98 03/17/22 22:00 83 03/17/22 20:17 98.7 F 83 18 119/65 97 03/17/22 15:47 98.2 F 79 16 118/56 100 - Physical Examination General: No Apparent Distress HEENT: Positive: PERRL Neck: Positive: neck supple Cardiac: Positive: Reg Rate and Rhythm Lungs: Positive: clear to auscultation Neuro: Positive: Grossly Intact Abdomen: Positive: Soft Skin: Positive: Clear Extremities: Absent: edema - Labs and Meds Cardiac Enzymes 03/18/22 Range/Units 10:33 AST 20 (5-40) units/L Comprehensive Metabolic Panel 03/17/22 03/17/22 03/17/22 Range/Units 14:29 19:10 22:19 Sodium 110 L* TNR 119 L* D (137-145) mmol/L Potassium 6.0 H TNR 4.3 D (3.6-5.0) mmol/L Chloride 74.4 L TNR 82.5 L (98-107) mmol/L Carbon Dioxide 13 L TNR 13 L (22-30) mmol/L BUN 75 H TNR 72 H (9-20) mg/dL Creatinine 7.8 H TNR 7.3 H (0.8-1.3) mg/dL Glucose 88 TNR 95 (75-100) mg/dL Calcium 7.1 L TNR 6.9 L (8.4-10.2) mg/dL Direct Bilirubin (0-0.2) mg/dL Indirect Bilirubin mg/dL AST (5-40) units/L ALT (7-56) units/L Alkaline Phosphatase (35-129) units/L Total Protein (6.3-8.2) g/dL Albumin (3.9-5) g/dL 03/18/22 03/18/22 Range/Units 04:12 10:33 Sodium 122 L 126 L (137-145) mmol/L Potassium 4.3 4.6 (3.6-5.0) mmol/L Chloride 83.6 L 85.1 L (98-107) mmol/L Carbon Dioxide 15 L 16 L (22-30) mmol/L BUN 72 H 69 H (9-20) mg/dL Creatinine 6.9 H 6.6 H (0.8-1.3) mg/dL Glucose 92 104 H (75-100) mg/dL Calcium 7.1 L 7.5 L (8.4-10.2) mg/dL Direct Bilirubin < 0.2 (0-0.2) mg/dL Indirect Bilirubin 0.2 mg/dL AST 20 (5-40) units/L ALT 24 (7-56) units/L Alkaline Phosphatase 82 (35-129) units/L Total Protein 8.4 H D (6.3-8.2) g/dL Albumin 5.0 (3.9-5) g/dL
--- NOTE | 2022-03-18 14:21 | Progress Note ---
Assessment and Plan 61-year-old Maur[place] male with past medical history of hypertension and diabetes mellitus presenting in the emergency room today complaining of nausea and vomiting which has been ongoing for the past 3 days. Work-up in the ED notable for normal BMP, EKG without acute ischemic changes, troponin x1 negative, BNP elevated 2560, elevated LFTs, and lipase 79. BMP next morning shows sodium 111, creatinine 7.9. Assessment and plan: #Severe hyponatremia #CLARISSA, possible ATN #Elevated BNP #Bifascicular block on EKG (RBBB + LPFB) #Nausea and vomitinglipase elevated #Abnormal LFTs #Hypertension #Diabetes 03/17: Await echocardiogram. Placed on IV fluid; monitor renal function. Unclear if labs drawn today are accurate; consulted nephrology Follow BMP every 6 hours. Ordered for MRCP to further evaluate gallbladder related pathology. 03/18: 2D echo showed preserved EF. Sodium level today 126. LFT in normal l imits. MRCP of essentially negative. Discontinue Lasix. Continue normal saline and monitor sodium and creatinine level. Nephrology following. Medical management per cardiology. Need to follow sodium level and nephrology recommendation. Subjective Date of service: 03/18/22 Principal diagnosis: elevated LFTs, N/V Interval history: Patient seen and examined. Medical records and medication list reviewed. No acute event overnight noted by the RN. Patient denies any chest pain or difficulty breathing. No nausea or vomiting today, tolerating diet Sodium level improved, LFT trended down Discussed plan of care at bedside with patient's daughter. Objective - Exam Narrative Exam: GENERAL: well-developed and well-nourished male lying on bed appeared to be in no discomfort. HEENT: Normocephalic. Atraumatic. No conjunctival congestion or icterus. Patient has moist mucous membranes. NECK: Supple. Trachea midline. CHEST/LUNGS: Clear to auscultated bilaterally, breathing nonlabored. No wheezes crackles or rhonchi. HEART/CARDIOVASCULAR: Regular in rate and rhythm. S1 and S2 positive. ABDOMEN: Abdomen is soft, nontender. Patient has normal bowel sounds. SKIN: There is no rash. Warm and dry. NEURO: No focal motor deficit. Follows command. MUSCULOSKELETAL: No joint effusion or tenderness. EXTRIMITY: No edema, no cyanosis or clubbing. PSYCH: Cooperative. - Constitutional Vitals: Vital Signs - 12hr 03/18/22 03/18/22 03/18/22 03:04 07:16 07:17 Temperature 98.3 F 98.1 F Pulse Rate 85 91 H Respiratory 18 22 22 Rate Blood Pressure 97/58 103/60 Blood Pressure 103/60 [Right] O2 Sat by Pulse 96 97 Oximetry 03/18/22 03/18/22 07:20 11:28 Temperature 98.9 F Pulse Rate 91 H Respiratory 18 Rate Blood Pressure 121/69 Blood Pressure [Right] O2 Sat by Pulse 98 99 Oximetry - Labs CBC & Chem 7: 03/16/22 20:41 03/18/22 10:33 Labs: Abnormal lab results 03/17/22 03/17/22 03/17/22 Range/Units 14:29 20:52 22:19 Sodium 110 L* 119 L* D (137-145) mmol/L Potassium 6.0 H (3.6-5.0) mmol/L Chloride 74.4 L 82.5 L (98-107) mmol/L Carbon Dioxide 13 L 13 L (22-30) mmol/L BUN 75 H 72 H (9-20) mg/dL Creatinine 7.8 H 7.3 H (0.8-1.3) mg/dL Glucose (75-100) mg/dL POC Glucose 125 H (70-105) mg/dL Calcium 7.1 L 6.9 L (8.4-10.2) mg/dL Total Protein (6.3-8.2) g/dL 03/18/22 03/18/22 Range/Units 04:12 10:33 Sodium 122 L 126 L (137-145) mmol/L Potassium (3.6-5.0) mmol/L Chloride 83.6 L 85.1 L (98-107) mmol/L Carbon Dioxide 15 L 16 L (22-30) mmol/L BUN 72 H 69 H (9-20) mg/dL Creatinine 6.9 H 6.6 H (0.8-1.3) mg/dL Glucose 104 H (75-100) mg/dL POC Glucose (70-105) mg/dL Calcium 7.1 L 7.5 L (8.4-10.2) mg/dL Total Protein 8.4 H D (6.3-8.2) g/dL HEART Score - HEART Score Troponin: Troponin T < 0.010 ng/mL (0.00-0.029) 03/16/22 20:41
[2022-03-18 18:46] LABS: Calcium 7.1 mg/dL (8.4-10.2)
[2022-03-18] MEDS: SODIUM BICARBONATE 650 MG TAB PO SCH (21:45)
[2022-03-18 22:20] LABS: Creatinine,Urine 38.1 mg/dL (0.1-20.0)
[2022-03-18] MEDS ORDERED: SODIUM CHLORIDE 0.9% 1000 ML 1,000 ML IV ONE (23:41)
[2022-03-19 05:14] LABS: Hematocrit 43.2 % (35.5-45.6); Hemoglobin 14.8 gm/dl (11.8-15.2); Mean Corpuscular HGB Conc 34 % (32-34); Mean Corpuscular Volume 90 fl (84-94); Platelet Count 188 K/mm3 (140-440); Red Blood Count 4.78 M/mm3 (3.65-5.03); Red Cell Distribution Width 14.2 % (13.2-15.2)
[2022-03-19 05:41] LABS: Calcium 6.7 mg/dL (8.4-10.2)
[2022-03-19 07:50] LABS: Basophils % (Manual) 0 % (0.0-1.8); Poikilocytosis 1+; Total Cells Counted 100
[2022-03-19 07:51] LABS: Burr Cells 1+; Large Platelets Few; Platelet Estimate Consistent w Auto
--- NOTE | 2022-03-19 08:00 | Progress Note ---
Assessment and Plan Assessment and plan: 61-year-old Japanese male with past medical history of hypertension and diabetes mellitus presenting in the emergency room today complaining of nausea and vomiting which has been ongoing for the past 3 days. Work-up in the ED notable for normal BMP, EKG without acute ischemic changes, troponin x1 negat payton, BNP elevated 2560, elevated LFTs, and lipase 79. BMP next morning shows sodium 111, creatinine 7.9. Assessment and plan: #Severe hyponatremia; sodium levels improving, today Na 132 Continue current management monitor electrolytes #CLARISSA, possible ATN; creatinine today is 5.1 Creatinine trending down Management per nephrology #Elevated BNP; Normal ejection fraction on echo #Bifascicular block on EKG (RBBB + LPFB); Chronic change, cardiology cleared #Nausea and vomitinglipase elevated; Symptoms improved #Abnormal LFTs; Resolved #Hypertension; Well-controlled continue current management #Diabetes; Accu-Chek sliding scale coverage ADA diet Insulin as needed DVT prophylaxis 03/17: Await echocardiogram. Placed on IV fluid; monitor renal function. Unclear if labs drawn today are accurate; consulted nephrology Follow BMP every 6 hours. Ordered for MRCP to further evaluate gallbladder related pathology. 03/18: 2D echo showed preserved EF. Sodium level today 126. LFT in normal limits. MRCP of essentially negative. Discontinue Lasix. Continue normal saline and monitor sodium and creatinine level. Nephrology following. Medical management per cardiology. Need to follow sodium level and nephrology recommendation. 03/19; patient's creatinine trending down to 5.1, sodium levels significantly improved today 132 Continue to monitor electrolytes, follow nephrology recommendations Discharge when medically stable History Interval history: I have seen and examined the patient at the bedside Patient's chart and medications reviewed Patient feels slightly better, creatinine is still high at 5.1 Vital signs noted Hospitalist Physical - Constitutional Vitals: Temp Pulse Resp BP Pulse Ox 98.2 F 81 18 121/70 95 03/19/22 03:22 03/19/22 03:22 03/19/22 03:22 03/19/22 03:22 03/19/22 06:58 General appearance: Present: no acute distress, well-nourished - EENT Eyes: Present: PERRL, EOM intact - Neck Neck: Present: supple, normal ROM - Respiratory Respiratory effort: normal Respiratory: bilateral: diminished, negative: rales, rhonchi, wheezing - Cardiovascular Rhythm: regular Heart Sounds: Present: S1 & S2 - Extremities Extremities: no ischemia, No edema - Abdominal General gastrointestinal: soft, non-tender, non-distended, normal bowel sounds - Integumentary Integumentary: Present: clear, warm - Psychiatric Psychiatric: appropriate mood/affect, cooperative - Neurologic Neurologic: CNII-XII intact, moves all extremities HEART Score - HEART Score Troponin: Troponin T < 0.010 ng/mL (0.00-0.029) 03/16/22 20:41 Results - Labs CBC & Chem 7: 03/19/22 03:47 03/19/22 03:47 Labs: Laboratory Last Values WBC 7.8 K/mm3 (4.5-11.0) 03/19/22 03:47 RBC 4.78 M/mm3 (3.65-5.03) 03/19/22 03:47 Hgb 14.8 gm/dl (11.8-15.2) 03/19/22 03:47 Hct 43.2 % (35.5-45.6) 03/19/22 03:47 MCV 90 fl (84-94) 03/19/22 03:47 MCH 31 pg (28-32) 03/19/22 03:47 MCHC 34 % (32-34) 03/19/22 03:47 RDW 14.2 % (13.2-15.2) 03/19/22 03:47 Plt Count 188 K/mm3 (140-440) 03/19/22 03:47 Lymph % (Auto) 10.8 % (13.4-35.0) L 03/16/22 20:41 Hubbard % (Auto) Net Maker 03/19/22 03:47 Eos % (Auto) 0.1 % (0.0-4.3) 03/16/22 20:41 Baso % (Auto) 0.1 % (0.0-1.8) 03/16/22 20:41 Lymph # (Auto) 0.9 K/mm3 (1.2-5.4) L 03/16/22 20:41 Hubbard # (Auto) 0.4 K/mm3 (0.0-0.8) 03/16/22 20:41 Eos # (Auto) 0.0 K/mm3 (0.0-0.4) 03/16/22 20:41 Baso # (Auto) 0.0 K/mm3 (0.0-0.1) 03/16/22 20:41 Add Manual Diff Complete 03/19/22 03:47 Total Counted 100 03/19/22 03:47 Seg Neutrophils % 83.7 % (40.0-70.0) H 03/16/22 20:41 Seg Neuts % (Manual) 21.0 % (40.0-70.0) L 03/19/22 03:47 Band Neutrophils % 0 % 03/19/22 03:47 Lymphocytes % (Manual) 49.0 % (13.4-35.0) H 03/19/22 03:47 Reactive Lymphs % (Man) 0 % 03/19/22 03:47 Monocytes % (Manual) 27.0 % (0.0-7.3) H 03/19/22 03:47 Eosinophils % (Manual) 3.0 % (0.0-4.3) 03/19/22 03:47 Basophils % (Manual) 0 % (0.0-1.8) 03/19/22 03:47 Metamyelocytes % 0 % 03/19/22 03:47 Myelocytes % 0 % 03/19/22 03:47 Promyelocytes % 0 % 03/19/22 03:47 Blast Cells % 0 % 03/19/22 03:47 Nucleated RBC % Not Reportable 03/19/22 03:47 Seg Neutrophils # 7.0 K/mm3 (1.8-7.7) 03/16/22 20:41 Seg Neutrophils # Man 1.6 K/mm3 (1.8-7.7) L 03/19/22 03:47 Band Neutrophils # 0.0 K/mm3 03/19/22 03:47 Lymphocytes # (Manual) 3.8 K/mm3 (1.2-5.4) 03/19/22 03:47 Abs React Lymphs (Man) 0.0 K/mm3 03/19/22 03:47 Monocytes # (Manual) 2.1 K/mm3 (0.0-0.8) H 03/19/22 03:47 Eosinophils # (Manual) 0.2 K/mm3 (0.0-0.4) 03/19/22 03:47 Basophils # (Manual) 0.0 K/mm3 (0.0-0.1) 03/19/22 03:47 Metamyelocytes # 0.0 K/mm3 03/19/22 03:47 Myelocytes # 0.0 K/mm3 03/19/22 03:47 Promyelocytes # 0.0 K/mm3 03/19/22 03:47 Blast Cells # 0.0 K/mm3 03/19/22 03:47 WBC Morphology Not Reportable 03/19/22 03:47 Hypersegmented Neuts Not Reportable 03/19/22 03:47 Hyposegmented Neuts Not Reportable 03/19/22 03:47 Hypogranular Neuts Not Reportable 03/19/22 03:47 Smudge Cells Not Reportable 03/19/22 03:47 Toxic Granulation Not Reportable 03/19/22 03:47 Toxic Vacuolation Not Reportable 03/19/22 03:47 Dohle Bodies Not Reportable 03/19/22 03:47 Pelger-Huet Anomaly Not Reportable 03/19/22 03:47 Isabel Rods Not Reportable 03/19/22 03:47 Platelet Estimate Consistent w auto 03/19/22 03:47 Clumped Platelets Not Reportable 03/19/22 03:47 Plt Clumps, EDTA Not Reportable 03/19/22 03:47 Large Platelets Few 03/19/22 03:47 Giant Platelets Not Reportable 03/19/22 03:47 Platelet Satelliting Not Reportable 03/19/22 03:47 Plt Morphology Comment Not Reportable 03/19/22 03:47 RBC Morphology Not Reportable 03/19/22 03:47 Dimorphic RBCs Not Reportable 03/19/22 03:47 Polychromasia Not Reportable 03/19/22 03:47 Hypochromasia Not Reportable 03/19/22 03:47 Poikilocytosis 1+ 03/19/22 03:47 Anisocytosis Not Reportable 03/19/22 03:47 Microcytosis Not Reportable 03/19/22 03:47 Macrocytosis Not Reportable 03/19/22 03:47 Spherocytes Not Reportable 03/19/22 03:47 Pappenheimer Bodies Not Reportable 03/19/22 03:47 Sickle Cells Not Reportable 03/19/22 03:47 Target Cells Not Reportable 03/19/22 03:47 Tear Drop Cells Not Reportable 03/19/22 03:47 Ovalocytes Not Reportable 03/19/22 03:47 Helmet Cells Not Reportable 03/19/22 03:47 [place] Bodies Not Reportable 03/19/22 03:47 Dodson Rings Not Reportable 03/19/22 03:47 Agnes Cells 1+ 03/19/22 03:47 Bite Cells Not Reportable 03/19/22 03:47 Crenated Cell Not Reportable 03/19/22 03:47 Elliptocytes Not Reportable 03/19/22 03:47 Acanthocytes (Spur) Not Reportable 03/19/22 03:47 Rouleaux Not Reportable 03/19/22 03:47 Hemoglobin C Crystals Not Reportable 03/19/22 03:47 Schistocytes Not Reportable 03/19/22 03:47 Malaria parasites Not Reportable 03/19/22 03:47 Bryan Bodies Not Reportable 03/19/22 03:47 Hem Pathologist Commnt No 03/19/22 03:47 Sodium 132 mmol/L (137-145) L D 03/19/22 03:47 Potassium 3.7 mmol/L (3.6-5.0) 03/19/22 03:47 Chloride 96.2 mmol/L (98-107) L 03/19/22 03:47 Carbon Dioxide 18 mmol/L (22-30) L 03/19/22 03:47 Anion Gap 22 mmol/L 03/19/22 03:47 BUN 71 mg/dL (9-20) H 03/19/22 03:47 Creatinine 5.1 mg/dL (0.8-1.3) H 03/19/22 03:47 Estimated GFR 12 ml/min 03/19/22 03:47 BUN/Creatinine Ratio 14 % 03/19/22 03:47 Glucose 111 mg/dL (75-100) H 03/19/22 03:47 POC Glucose 200 mg/dL (70-105) H 03/18/22 20:23 Osmolality 295 Mosm/kg 03/18/22 12:13 Calcium 6.7 mg/dL (8.4-10.2) L 03/19/22 03:47 Magnesium 1.60 mg/dL (1.7-2.3) L 03/16/22 20:41 Total Bilirubin 0.40 mg/dL (0.1-1.2) 03/18/22 10:33 Direct Bilirubin < 0.2 mg/dL (0-0.2) 03/18/22 10:33 Indirect Bilirubin 0.2 mg/dL 03/18/22 10:33 AST 20 units/L (5-40) 03/18/22 10:33 ALT 24 units/L (7-56) 03/18/22 10:33 Alkaline Phosphatase 82 units/L (35-129) 03/18/22 10:33 Lactate Dehydrogenase 205 units/L (91-180) H 03/16/22 20:41 Total Creatine Kinase 307 units/L (55-170) H 03/16/22 20:41 Troponin T < 0.010 ng/mL (0.00-0.029) 03/16/22 20:41 NT-Pro-B Natriuret Pep 2560 pg/mL (0-900) H 03/16/22 20:41 Total Protein 8.4 g/dL (6.3-8.2) H D 03/18/22 10:33 Albumin 5.0 g/dL (3.9-5) 03/18/22 10:33 Albumin/Globulin Ratio 1.5 % 03/18/22 10:33 Lipase 79 units/L (13-60) H 03/16/22 20:41 PTH Intact 156.5 pg/mL (15-65) H 03/19/22 03:47 Urine Color Colorless (Yellow) 03/17/22 01:42 Urine Turbidity Clear (Clear) 03/17/22 01:42 Urine pH 5.0 (5.0-7.0) 03/17/22 01:42 Ur Specific [place] 1.005 (1.003-1.030) 03/17/22 01:42 Urine Protein 30 mg/dl mg/dL (Negative) 03/17/22 01:42 Urine Glucose (UA) Neg mg/dL (Negative) 03/17/22 01:42 Urine Ketones Neg mg/dL (Negative) 03/17/22 01:42 Urine Blood Mod (Negative) 03/17/22 01:42 Urine Nitrite Neg (Negative) 03/17/22 01:42 Urine Bilirubin Neg (Negative) 03/17/22 01:42 Urine Urobilinogen < 2.0 mg/dL (<2.0) 03/17/22 01:42 Ur Leukocyte Esterase Neg (Negative) 03/17/22 01:42 Urine WBC (Auto) 1.0 /HPF (0.0-6.0) 03/17/22 01:42 Urine RBC (Auto) < 1.0 /HPF (0.0-6.0) 03/17/22 01:42 Hyaline Casts 1 /LPF 03/17/22 01:42 Urine Yeast (Budding) Few /HPF 03/17/22 01:42 Urine Osmolality 294 Mosm/kg 03/18/22 21:50 Urine Creatinine 38.1 mg/dL (0.1-20.0) H 03/18/22 21:50 Urine Sodium 73 mmol/L 03/18/22 21:50 Hepatitis A IgM Ab Non-reactive (NonReactive) 03/17/22 07:29 Hep Bs Antigen Non-reactive (Negative) 03/17/22 07:29 Hep B Core IgM Ab Non-reactive (NonReactive) 03/17/22 07:29 Hepatitis C Antibody Non-reactive (NonReactive) 03/17/22 07:29 Armijo/IV: Voiding Method Toilet Active Medications - Current Medications Current Medications: Generic Name Dose Route Start Last Admin Trade Name Freq PRN Reason Stop Dose Admin Acetaminophen 650 mg 03/16/22 22:33 Acetaminophen 325 Mg Tab PO Q4H PRN Pain MILD(1-3)/Fever >100.5/DIAZ Dextrose 50 ml 03/16/22 22:33 Dextrose 50% In Water (25gm) 50 Ml Syringe IV Q30MIN PRN Hypoglycemia Protocol Sodium Chloride 1,000 mls @ 125 mls/hr 03/19/22 00:00 Nacl 0.9% 1000 Ml IV DIRECT NICK Insulin Human Regular 0 units 03/17/22 07:30 03/18/22 21:45 Insulin Regular, Human 100 Units/1 Ml SUB-Q 2 units ACHS NICK Administration Protocol Magnesium Hydroxide 30 ml 03/16/22 22:33 Magnesium Hydroxide (Mom) Oral Liqd Udc PO Q4H PRN Constipation Morphine Sulfate 2 mg 03/16/22 22:33 Morphine 2 Mg/1 Ml Inj IV Q4H PRN Pain, Moderate (4-6) Morphine Sulfate 4 mg 03/16/22 22:33 Morphine 4 Mg/1 Ml Inj IV Q4H PRN Pain , Severe (7-10) Ondansetron HCl 4 mg 03/16/22 22:33 03/17/22 01:15 Ondansetron 4 Mg/2 Ml Inj IV 4 mg Q8H PRN Administration Nausea And Vomiting Sodium Bicarbonate 1,300 mg 03/18/22 21:10 03/18/22 21:45 Sodium Bicarbonate 650 Mg Tab PO 1,300 mg TID NICK Administration Sodium Chloride 10 ml 03/17/22 10:00 03/18/22 21:46 Sodium Chloride 0.9% 10 Ml Flush Syringe IV 10 ml BID NICK Administration Sodium Chloride 10 ml 03/16/22 22:33 Sodium Chloride 0.9% 10 Ml Flush Syringe IV PRN PRN LINE FLUSH Nutrition/Malnutrition Assess - Dietary Evaluation Nutrition/Malnutrition Findings: Nutrition Notes Start: 03/17/22 14:11 Freq: Status: Active Protocol: Document 03/17/22 14:11 MONIQUE (Rec: 03/17/22 14:23 MONIQUE [id number]) Nutrition Notes Need for Assessment generated from: MD Order,Education Initial or Follow up Assessment Current Diagnosis Diabetes,Hypertension Other Pertinent Diagnosis N/V, CHF, Abnormal EKG. Current Diet Cardiac/Consistent Carbohydrates Diet (since B ). 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 Weight Status Appropriate Subjective/Other Information RD consult ofr nutrition education assessment. No reports available on Pt's PO intake of meals at the time , will assess at F/U. Pt is on Room Air, O2 saturation @ 97%, according to Physical Assessment History notes. Pt still in critical condition , not a candidate for Nutrition Education at the time, will assess feasibility on F/U. Percent of energy/protein needs met: Prescribed Cardiac/Consistent Carbohydrates Diet provides for energy/protein needs (1, 977 Kcal/86 g) during LOS. Nutrition Intervention Follow-Up By: 03/22/22 Additional Comments Nutrition education will be provided on F/U, if feasible. Continue monitoring food tolerance, %PO intake of meals , and BM.
--- NOTE | 2022-03-19 08:01 | Progress Note ---
Assessment and Plan 1. Acute kidney injury: Admitted with very high creatinine level. Baseline renal function is unknown. Background CKD. Likely vasomotor CLARISSA in the setting of volume depletion. ATN. CT showed b/l nephrolithiasis and mild L hydronephrosis. Continue IV fluids. Monitor renal function. Creatinine level is slowly improving. Renal prognosis is guarded. Avoid nephrotoxic agents. Meds dosage based on GFR. 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 2. Hyponatremia: Likely 2/2 volume depletion. Sr and Ur Osm. Continue IV fluids Monitor Sodium level. 3. FEN: Anion-gap metabolic acidosis, 2/2 CLARISSA + Metformin. IV fluids, Sod, bicarb, monitor. Monitor lytes and volume status. 4. DM-2: Monitor. 5. H/o Hypertension: Monitor BP. Subjective: Patient was seen and examined at the bedside. Doing ok. Daughter at the bedside. Examination: General appearance: well-developed, appears stated age, thin built, no distress HEENT: atraumatic, pupils equal Neck: trachea midline Respiratory: ctab Heart: S1S2, regular, no murmur Abdomen: soft, bowel sounds heard, NT Integumentary: no obvious rash noted Neurologic: conversing, able to move extremities Ext: no edema noted Subjective Date of service: 03/19/22 Principal diagnosis: elevated LFTs, N/V Objective - Vital Signs Vital signs: Vital Signs - 12hr 03/18/22 03/18/22 03/18/22 22:00 23:00 23:09 Temperature 98.7 F Pulse Rate 89 89 Respiratory 20 Rate Blood Pressure 85/46 O2 Sat by Pulse 95 95 Oximetry 03/19/22 03/19/22 03:22 06:58 Temperature 98.2 F Pulse Rate 81 Respiratory 18 Rate Blood Pressure 121/70 O2 Sat by Pulse 99 95 Oximetry - Lab 03/19/22 03:47 03/19/22 03:47 Most recent lab results Calcium 6.7 mg/dL (8.4-10.2) L 03/19/22 03:47 Magnesium 1.60 mg/dL (1.7-2.3) L 03/16/22 20:41 Urine Creatinine 38.1 mg/dL (0.1-20.0) H 03/18/22 21:50 Urine Sodium 73 mmol/L 03/18/22 21:50 Medications & Allergies - Medications Allergies/Adverse Reactions: Allergies No Known Allergies Allergy (Verified 03/18/22 10:12) Home Medications: Home Medications Medication Instructions Recorded Confirmed Last Taken Type Losartan [Cozaar] 50 mg PO QDAY 03/17/22 03/18/22 1 Day Ago History ~03/16/22 50 mg Metformin HCl [metFORMIN] 1,000 mg PO BID 03/17/22 03/18/22 1 Day Ago History ~03/16/22 1000 mg Rosuvastatin Calcium 20 mg PO DAILY 03/17/22 03/18/22 1 Day Ago History ~03/16/22 20 mg Active Medications: Generic Name Dose Route Start Last Admin Trade Name Freq PRN Reason Stop Dose Admin Acetaminophen 650 mg 03/16/22 22:33 Acetaminophen 325 Mg Tab PO Q4H PRN Pain MILD(1-3)/Fever >100.5/DIAZ Dextrose 50 ml 03/16/22 22:33 Dextrose 50% In Water (25gm) 50 Ml Syringe IV Q30MIN PRN Hypoglycemia Protocol Sodium Chloride 1,000 mls @ 125 mls/hr 03/19/22 00:00 Nacl 0.9% 1000 Ml IV DIRECT NICK Insulin Human Regular 0 units 03/17/22 07:30 03/18/22 21:45 Insulin Regular, Human 100 Units/1 Ml SUB-Q 2 units ACHS NICK Administration Protocol Magnesium Hydroxide 30 ml 03/16/22 22:33 Magnesium Hydroxide (Mom) Oral Liqd Udc PO Q4H PRN Constipation Morphine Sulfate 2 mg 03/16/22 22:33 Morphine 2 Mg/1 Ml Inj IV Q4H PRN Pain, Moderate (4-6) Morphine Sulfate 4 mg 03/16/22 22:33 Morphine 4 Mg/1 Ml Inj IV Q4H PRN Pain , Severe (7-10) Ondansetron HCl 4 mg 03/16/22 22:33 03/17/22 01:15 Ondansetron 4 Mg/2 Ml Inj IV 4 mg Q8H PRN Administration Nausea And Vomiting Sodium Bicarbonate 1,300 mg 03/18/22 21:10 03/18/22 21:45 Sodium Bicarbonate 650 Mg Tab PO 1,300 mg TID NICK Administration Sodium Chloride 10 ml 03/17/22 10:00 03/18/22 21:46 Sodium Chloride 0.9% 10 Ml Flush Syringe IV 10 ml BID NICK Administration Sodium Chloride 10 ml 03/16/22 22:33 Sodium Chloride 0.9% 10 Ml Flush Syringe IV PRN PRN LINE FLUSH
[2022-03-19] MEDS: INSULIN REGULAR, HUMAN 100 UNITS/1 ML SUB-Q SCH ×4 (08:10→22:19)
[2022-03-19] MEDS: HEPARIN 5,000 UNIT/1 ML VIAL SUB-Q SCH ×2 (10:22→21:16)
[2022-03-19] MEDS: SODIUM BICARBONATE 650 MG TAB PO SCH ×3 (10:22→21:16)
[2022-03-19] MEDS: SODIUM CHLORIDE 0.9% 1000 ML 1,000 ML IV SCH ×2 (11:35→21:17)
--- NOTE | 2022-03-19 18:41 | Electrocardiograph Report ---
[facility] Test Date: 2022-03-16 Test Time: 19:44:12 Pat Name: MURTAZA REY Department: Room: A454 1 Gender: M [employer]: TIEN : 1960 Requested By: GEGE COLEMAN Order Number: [id number] Reading MD: Liborio Villalobos Measurements Intervals Kimberly Rate: 77 P: 121 NM: 163 QRS: 96 QRSD: 157 T: 113 QT: 425 QTc: 482 Interpretive Statements Sinus rhythm Probable left atrial enlargement Right bundle branch block ST elevation consistent with acute inferior myocardial infarction STEMI No previous ECG available for comparison Electronically Signed On 03-19-2022 18:40:43 EDT by Liborio Villalobos
[2022-03-20] MEDS: SODIUM CHLORIDE 0.9% 1000 ML 1,000 ML IV SCH ×2 (05:47→17:01)
[2022-03-20 06:39] LABS: Calcium 6.2 mg/dL (8.4-10.2)
[2022-03-20] MEDS ORDERED: CALCIUM GLUCONATE 2,000 MG in SODIUM CHLORIDE 0.9% 100 ML IV ONE (06:44)
[2022-03-20] MEDS: INSULIN REGULAR, HUMAN 100 UNITS/1 ML SUB-Q SCH ×4 (08:27→22:44)
[2022-03-20] MEDS: CALC GLUCONATE 1GM/NS 100 ML 1 GM/100 ML BAG IV SCH ×2 (08:56→09:17)
[2022-03-20] MEDS: POTASSIUM CHLORIDE ER 20 MEQ TAB PO NR ×2 (08:56→09:19)
[2022-03-20] MEDS: SODIUM BICARBONATE 650 MG TAB PO SCH ×3 (08:56→21:12)
[2022-03-20] MEDS: POTASSIUM CHLORIDE 10 MEQ 10 MEQ/100 ML BAG IV SCH ×2 (09:17→12:01)
[2022-03-20] MEDS: HEPARIN 5,000 UNIT/1 ML VIAL SUB-Q SCH ×2 (09:20→21:13)
--- NOTE | 2022-03-20 09:52 | Progress Note ---
Assessment and Plan Assessment and plan: 61-year-old Mong[place]ian male with past medical history of hypertension and diabetes mellitus presenting in the emergency room today complaining of nausea and vomiting which has been ongoing for the past 3 days. Work-up in the ED notable for normal BMP, EKG without acute ischemic changes, troponin x1 negat payton, BNP elevated 2560, elevated LFTs, and lipase 79. BMP next morning shows sodium 111, creatinine 7.9. Assessment and plan: #Severe hyponatremia; sodium levels improving, today Na 132 Continue current management monitor electrolytes #CLARISSA, possible ATN; creatinine today is 5.1 Creatinine trending down Management per nephrology #Elevated BNP; Normal ejection fraction on echo #Bifascicular block on EKG (RBBB + LPFB); Chronic change, cardiology cleared #Nausea and vomitinglipase elevated; Symptoms improved #Abnormal LFTs; Resolved #Hypertension; Well-controlled continue current management #Diabetes; Accu-Chek sliding scale coverage ADA diet Insulin as needed DVT prophylaxis 03/17: Await echocardiogram. Placed on IV fluid; monitor renal function. Unclear if labs drawn today are accurate; consulted nephrology Follow BMP every 6 hours. Ordered for MRCP to further evaluate gallbladder related pathology. 03/18: 2D echo showed preserved EF. Sodium level today 126. LFT in normal limits. MRCP of essentially negative. Discontinue Lasix. Continue normal saline and monitor sodium and creatinine level. Nephrology following. Medical management per cardiology. Need to follow sodium level and nephrology recommendation. 03/19; patient's creatinine trending down to 5.1, sodium levels significantly improved today 132 Continue to monitor electrolytes, follow nephrology recommendations Discharge when medically stable 03/20 renal function significantly improved, hypokalemia, hypomagnesemia Replenished with KCl and magnesium sulfate IV, monitor electrolytes DC planning, PT evaluation, possible discharge tomorrow if stable History Interval history: I have seen and examined the patient at the bedside Patient's chart and medications reviewed Patient feels better no new complaints Vital signs Hospitalist Physical - Constitutional Vitals: Temp Pulse Resp BP Pulse Ox 97.9 F 80 18 109/58 100 03/20/22 08:02 03/20/22 08:02 03/20/22 08:02 03/20/22 08:02 03/20/22 08:02 General appearance: Present: no acute distress, well-nourished - EENT Eyes: Present: PERRL, EOM intact - Neck Neck: Present: supple, normal ROM - Respiratory Respiratory effort: normal Respiratory: bilateral: diminished, negative: rales, rhonchi, wheezing - Cardiovascular Rhythm: regular Heart Sounds: Present: S1 & S2 - Extremities Extremities: no ischemia, No edema - Abdominal General gastrointestinal: soft, non-tender, non-distended - Integumentary Integumentary: Present: clear, warm - Psychiatric Psychiatric: appropriate mood/affect - Neurologic Neurologic: moves all extremities HEART Score - HEART Score Troponin: Troponin T < 0.010 ng/mL (0.00-0.029) 03/16/22 20:41 Results - Labs CBC & Chem 7: 03/19/22 03:47 03/20/22 15:20 Labs: Laboratory Last Values WBC 7.8 K/mm3 (4.5-11.0) 03/19/22 03:47 RBC 4.78 M/mm3 (3.65-5.03) 03/19/22 03:47 Hgb 14.8 gm/dl (11.8-15.2) 03/19/22 03:47 Hct 43.2 % (35.5-45.6) 03/19/22 03:47 MCV 90 fl (84-94) 03/19/22 03:47 MCH 31 pg (28-32) 03/19/22 03:47 MCHC 34 % (32-34) 03/19/22 03:47 RDW 14.2 % (13.2-15.2) 03/19/22 03:47 Plt Count 188 K/mm3 (140-440) 03/19/22 03:47 Lymph % (Auto) 10.8 % (13.4-35.0) L 03/16/22 20:41 [place] % (Auto) 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 03/19/22 03:47 Eos % (Auto) 0.1 % (0.0-4.3) 03/16/22 20:41 Baso % (Auto) 0.1 % (0.0-1.8) 03/16/22 20:41 Lymph # (Auto) 0.9 K/mm3 (1.2-5.4) L 03/16/22 20:41 [place] # (Auto) 0.4 K/mm3 (0.0-0.8) 03/16/22 20:41 Eos # (Auto) 0.0 K/mm3 (0.0-0.4) 03/16/22 20:41 Baso # (Auto) 0.0 K/mm3 (0.0-0.1) 03/16/22 20:41 Add Manual Diff Complete 03/19/22 03:47 Total Counted 100 03/19/22 03:47 Seg Neutrophils % 83.7 % (40.0-70.0) H 03/16/22 20:41 Seg Neuts % (Manual) 21.0 % (40.0-70.0) L 03/19/22 03:47 Band Neutrophils % 0 % 03/19/22 03:47 Lymphocytes % (Manual) 49.0 % (13.4-35.0) H 03/19/22 03:47 Reactive Lymphs % (Man) 0 % 03/19/22 03:47 Monocytes % (Manual) 27.0 % (0.0-7.3) H 03/19/22 03:47 Eosinophils % (Manual) 3.0 % (0.0-4.3) 03/19/22 03:47 Basophils % (Manual) 0 % (0.0-1.8) 03/19/22 03:47 Metamyelocytes % 0 % 03/19/22 03:47 Myelocytes % 0 % 03/19/22 03:47 Promyelocytes % 0 % 03/19/22 03:47 Blast Cells % 0 % 03/19/22 03:47 Nucleated RBC % Not Reportable 03/19/22 03:47 Seg Neutrophils # 7.0 K/mm3 (1.8-7.7) 03/16/22 20:41 Seg Neutrophils # Man 1.6 K/mm3 (1.8-7.7) L 03/19/22 03:47 Band Neutrophils # 0.0 K/mm3 03/19/22 03:47 Lymphocytes # (Manual) 3.8 K/mm3 (1.2-5.4) 03/19/22 03:47 Abs React Lymphs (Man) 0.0 K/mm3 03/19/22 03:47 Monocytes # (Manual) 2.1 K/mm3 (0.0-0.8) H 03/19/22 03:47 Eosinophils # (Manual) 0.2 K/mm3 (0.0-0.4) 03/19/22 03:47 Basophils # (Manual) 0.0 K/mm3 (0.0-0.1) 03/19/22 03:47 Metamyelocytes # 0.0 K/mm3 03/19/22 03:47 Myelocytes # 0.0 K/mm3 03/19/22 03:47 Promyelocytes # 0.0 K/mm3 03/19/22 03:47 Blast Cells # 0.0 K/mm3 03/19/22 03:47 WBC Morphology Not Reportable 03/19/22 03:47 Hypersegmented Neuts Not Reportable 03/19/22 03:47 Hyposegmented Neuts Not Reportable 03/19/22 03:47 Hypogranular Neuts Not Reportable 03/19/22 03:47 Smudge Cells Not Reportable 03/19/22 03:47 Toxic Granulation Not Reportable 03/19/22 03:47 Toxic Vacuolation Not Reportable 03/19/22 03:47 Dohle Bodies Not Reportable 03/19/22 03:47 Pelger-Huet Anomaly Not Reportable 03/19/22 03:47 Isabel Rods Not Reportable 03/19/22 03:47 Platelet Estimate Consistent w auto 03/19/22 03:47 Clumped Platelets Not Reportable 03/19/22 03:47 Plt Clumps, EDTA Not Reportable 03/19/22 03:47 Large Platelets Few 03/19/22 03:47 Giant Platelets Not Reportable 03/19/22 03:47 Platelet Satelliting Not Reportable 03/19/22 03:47 Plt Morphology Comment Not Reportable 03/19/22 03:47 RBC Morphology Not Reportable 03/19/22 03:47 Dimorphic RBCs Not Reportable 03/19/22 03:47 Polychromasia Not Reportable 03/19/22 03:47 Hypochromasia Not Reportable 03/19/22 03:47 Poikilocytosis 1+ 03/19/22 03:47 Anisocytosis Not Reportable 03/19/22 03:47 Microcytosis Not Reportable 03/19/22 03:47 Macrocytosis Not Reportable 03/19/22 03:47 Spherocytes Not Reportable 03/19/22 03:47 Pappenheimer Bodies Not Reportable 03/19/22 03:47 Sickle Cells Not Reportable 03/19/22 03:47 Target Cells Not Reportable 03/19/22 03:47 Tear Drop Cells Not Reportable 03/19/22 03:47 Ovalocytes Not Reportable 03/19/22 03:47 Helmet Cells Not Reportable 03/19/22 03:47 [place] Bodies Not Reportable 03/19/22 03:47 Ravena Rings Not Reportable 03/19/22 03:47 [place] Cells 1+ 03/19/22 03:47 Bite Cells Not Reportable 03/19/22 03:47 Crenated Cell Not Reportable 03/19/22 03:47 Elliptocytes Not Reportable 03/19/22 03:47 Acanthocytes (Spur) Not Reportable 03/19/22 03:47 Rouleaux Not Reportable 03/19/22 03:47 Hemoglobin C Crystals Not Reportable 03/19/22 03:47 Schistocytes Not Reportable 03/19/22 03:47 Malaria parasites Not Reportable 03/19/22 03:47 Bryan Bodies Not Reportable 03/19/22 03:47 Hem Pathologist Commnt No 03/19/22 03:47 Sodium 140 mmol/L (137-145) D 03/20/22 04:49 Potassium 2.9 mmol/L (3.6-5.0) L* D 03/20/22 04:49 Chloride 103.0 mmol/L (98-107) 03/20/22 04:49 Carbon Dioxide 21 mmol/L (22-30) L 03/20/22 04:49 Anion Gap 19 mmol/L 03/20/22 04:49 BUN 45 mg/dL (9-20) H 03/20/22 04:49 Creatinine 2.7 mg/dL (0.8-1.3) H 03/20/22 04:49 Estimated GFR 24 ml/min 03/20/22 04:49 BUN/Creatinine Ratio 17 % 03/20/22 04:49 Glucose 105 mg/dL (75-100) H 03/20/22 04:49 POC Glucose 118 mg/dL (70-105) H 03/20/22 08:00 Osmolality 295 Mosm/kg 03/18/22 12:13 Calcium 6.2 mg/dL (8.4-10.2) L 03/20/22 04:49 Magnesium 1.60 mg/dL (1.7-2.3) L 03/16/22 20:41 Total Bilirubin 0.40 mg/dL (0.1-1.2) 03/18/22 10:33 Direct Bilirubin < 0.2 mg/dL (0-0.2) 03/18/22 10:33 Indirect Bilirubin 0.2 mg/dL 03/18/22 10:33 AST 20 units/L (5-40) 03/18/22 10:33 ALT 24 units/L (7-56) 03/18/22 10:33 Alkaline Phosphatase 82 units/L (35-129) 03/18/22 10:33 Lactate Dehydrogenase 205 units/L (91-180) H 03/16/22 20:41 Total Creatine Kinase 307 units/L (55-170) H 03/16/22 20:41 Troponin T < 0.010 ng/mL (0.00-0.029) 03/16/22 20:41 NT-Pro-B Natriuret Pep 2560 pg/mL (0-900) H 03/16/22 20:41 Total Protein 8.4 g/dL (6.3-8.2) H D 03/18/22 10:33 Albumin 5.0 g/dL (3.9-5) 03/18/22 10:33 Albumin/Globulin Ratio 1.5 % 03/18/22 10:33 Lipase 79 units/L (13-60) H 03/16/22 20:41 PTH Intact 156.5 pg/mL (15-65) H 03/19/22 03:47 Urine Color Colorless (Yellow) 03/17/22 01:42 Urine Turbidity Clear (Clear) 03/17/22 01:42 Urine pH 5.0 (5.0-7.0) 03/17/22 01:42 Ur Specific [place] 1.005 (1.003-1.030) 03/17/22 01:42 Urine Protein 30 mg/dl mg/dL (Negative) 03/17/22 01:42 Urine Glucose (UA) Neg mg/dL (Negative) 03/17/22 01:42 Urine Ketones Neg mg/dL (Negative) 03/17/22 01:42 Urine Blood Mod (Negative) 03/17/22 01:42 Urine Nitrite Neg (Negative) 03/17/22 01:42 Urine Bilirubin Neg (Negative) 03/17/22 01:42 Urine Urobilinogen < 2.0 mg/dL (<2.0) 03/17/22 01:42 Ur Leukocyte Esterase Neg (Negative) 03/17/22 01:42 Urine WBC (Auto) 1.0 /HPF (0.0-6.0) 03/17/22 01:42 Urine RBC (Auto) < 1.0 /HPF (0.0-6.0) 03/17/22 01:42 Hyaline Casts 1 /LPF 03/17/22 01:42 Urine Yeast (Budding) Few /HPF 03/17/22 01:42 Urine Osmolality 294 Mosm/kg 03/18/22 21:50 Urine Creatinine 38.1 mg/dL (0.1-20.0) H 03/18/22 21:50 Urine Sodium 73 mmol/L 03/18/22 21:50 Hepatitis A IgM Ab Non-reactive (NonReactive) 03/17/22 07:29 Hep Bs Antigen Non-reactive (Negative) 03/17/22 07:29 Hep B Core IgM Ab Non-reactive (NonReactive) 03/17/22 07:29 Hepatitis C Antibody Non-reactive (NonReactive) 03/17/22 07:29 Armijo/IV: Voiding Method Toilet Active Medications - Current Medications Current Medications: Generic Name Dose Route Start Last Admin Trade Name Freq PRN Reason Stop Dose Admin Acetaminophen 650 mg 03/16/22 22:33 Acetaminophen 325 Mg Tab PO Q4H PRN Pain MILD(1-3)/Fever >100.5/DIAZ Dextrose 50 ml 03/16/22 22:33 Dextrose 50% In Water (25gm) 50 Ml Syringe IV Q30MIN PRN Hypoglycemia Protocol Heparin Sodium (Porcine) 5,000 unit 03/19/22 10:00 03/20/22 09:20 Heparin 5,000 Unit/1 Ml Vial SUB-Q 5,000 unit Q12HR NICK Administration Sodium Chloride 1,000 mls @ 125 mls/hr 03/19/22 00:00 03/20/22 05:47 Nacl 0.9% 1000 Ml IV 125 mls/hr DIRECT NICK Administration CALC GLUCONATE 1GM/NS 100 ML 1 gm in 100 mls @ 100 mls/hr 03/20/22 08:00 03/20/22 09:17 Calcium Gluonate/Ns 1,000mg/100ml IV 03/20/22 09:59 100 mls/hr Q1H NICK Administration Potassium Chloride 10 meq in 100 mls @ 100 mls/hr 03/20/22 08:00 03/20/22 09:17 Kcl 10meq/100ml IV 03/20/22 11:59 100 mls/hr Q1H NICK Administration Insulin Human Regular 0 units 03/17/22 07:30 03/20/22 08:27 Insulin Regular, Human 100 Units/1 Ml SUB-Q Not Given ACHS NICK Protocol Magnesium Hydroxide 30 ml 03/16/22 22:33 Magnesium Hydroxide (Mom) Oral Liqd Udc PO Q4H PRN Constipation Morphine Sulfate 2 mg 03/16/22 22:33 Morphine 2 Mg/1 Ml Inj IV Q4H PRN Pain, Moderate (4-6) Morphine Sulfate 4 mg 03/16/22 22:33 Morphine 4 Mg/1 Ml Inj IV Q4H PRN Pain , Severe (7-10) Ondansetron HCl 4 mg 03/16/22 22:33 03/17/22 01:15 Ondansetron 4 Mg/2 Ml Inj IV 4 mg Q8H PRN Administration Nausea And Vomiting Potassium Chloride 40 meq 03/20/22 07:30 03/20/22 09:19 Potassium Chloride Er 20 Meq Tab PO 03/20/22 10:00 40 meq ONCE NR Administration Sodium Bicarbonate 1,300 mg 03/18/22 21:10 03/20/22 08:56 Sodium Bicarbonate 650 Mg Tab PO 1,300 mg TID NICK Administration Sodium Chloride 10 ml 03/17/22 10:00 03/20/22 09:20 Sodium Chloride 0.9% 10 Ml Flush Syringe IV 10 ml BID NICK Administration Sodium Chloride 10 ml 03/16/22 22:33 Sodium Chloride 0.9% 10 Ml Flush Syringe IV PRN PRN LINE FLUSH Nutrition/Malnutrition Assess - Dietary Evaluation Nutrition/Malnutrition Findings: Nutrition Notes Start: 03/17/22 14:11 Freq: Status: Active Protocol: Document 03/17/22 14:11 MONIQUE (Rec: 03/17/22 14:23 MONIQUE [email or web address]) Nutrition Notes Need for Assessment generated from: MD Order,Education Initial or Follow up Assessment Current Diagnosis Diabetes,Hypertension Other Pertinent Diagnosis N/V, CHF, Abnormal EKG. Current Diet Cardiac/Consistent Carbohydrates Diet (since B ). 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 Weight Status Appropriate Subjective/Other Information RD consult ofr nutrition education assessment. No reports available on Pt's PO intake of meals at the time , will assess at F/U. Pt is on Room Air, O2 saturation @ 97%, according to Physical Assessment History notes. Pt still in critical condition , not a candidate for Nutrition Education at the time, will assess feasibility on F/U. Percent of energy/protein needs met: Prescribed Cardiac/Consistent Carbohydrates Diet provides for energy/protein needs (1, 977 Kcal/86 g) during LOS. Nutrition Intervention Follow-Up By: 03/22/22 Additional Comments Nutrition education will be provided on F/U, if feasible. Continue monitoring food tolerance, %PO intake of meals , and BM.
[2022-03-20] MEDS ORDERED: POTASSIUM CHLORIDE ER 20 MEQ TAB PO ONE (11:32)
--- NOTE | 2022-03-20 11:33 | Progress Note ---
Assessment and Plan 1. Acute kidney injury: Admitted with very high creatinine level. Baseline renal function is unknown. Background CKD. Likely vasomotor CLARISSA in the setting of volume depletion. ATN. CT showed b/l nephrolithiasis and mild L hydronephrosis. Continue IV fluids. Monitor renal function. Creatinine level is improving. Renal prognosis is guarded. Avoid nephrotoxic agents. Meds dosage based on GFR. Monitor for GAME MASTER needs. 2. Hyponatremia: Likely 2/2 volume depletion. Continue IV fluids. Sodium level is better. Monitor Sodium level. 3. FEN: Anion-gap metabolic acidosis, 2/2 CLARISSA + Metformin. IV fluids, Sod, bicarb, monitor. Replete lytes. Monitor lytes and volume status. 4. DM-2: Monitor. 5. H/o Hypertension: Monitor BP. Subjective: Patient was seen and examined at the bedside. Doing ok. Family member at the bedside. Examination: General appearance: well-developed, appears stated age, thin built, no distress HEENT: atraumatic, pupils equal Neck: trachea midline Respiratory: ctab Heart: S1S2, regular, no murmur Abdomen: soft, bowel sounds heard, NT Integumentary: no obvious rash noted Neurologic: conversing, able to move extremities Ext: no edema noted Subjective Date of service: 03/20/22 Principal diagnosis: elevated LFTs, N/V Objective - Vital Signs Vital signs: Vital Signs - 12hr 03/20/22 03/20/22 03/20/22 00:00 03:49 07:20 Temperature 98.2 F 98.0 F Pulse Rate 78 81 82 Respiratory 20 17 Rate Blood Pressure 140/72 Blood Pressure 125/75 [Right] O2 Sat by Pulse 100 99 Oximetry 03/20/22 08:02 Temperature 97.9 F Pulse Rate 80 Respiratory 18 Rate Blood Pressure 109/58 Blood Pressure [Right] O2 Sat by Pulse 100 Oximetry - Lab 03/19/22 03:47 03/21/22 04:38 Most recent lab results Calcium 6.2 mg/dL (8.4-10.2) L 03/20/22 04:49 Magnesium 1.60 mg/dL (1.7-2.3) L 03/16/22 20:41 Urine Creatinine 38.1 mg/dL (0.1-20.0) H 03/18/22 21:50 Urine Sodium 73 mmol/L 03/18/22 21:50 Medications & Allergies - Medications Allergies/Adverse Reactions: Allergies No Known Allergies Allergy (Verified 03/18/22 10:12) Home Medications: Home Medications Medication Instructions Recorded Confirmed Last Taken Type Losartan [Cozaar] 50 mg PO QDAY 03/17/22 03/18/22 1 Day Ago History ~03/16/22 50 mg Metformin HCl [metFORMIN] 1,000 mg PO BID 03/17/22 03/18/22 1 Day Ago History ~03/16/22 1000 mg Rosuvastatin Calcium 20 mg PO DAILY 03/17/22 03/18/22 1 Day Ago History ~03/16/22 20 mg Active Medications: Generic Name Dose Route Start Last Admin Trade Name Freq PRN Reason Stop Dose Admin Acetaminophen 650 mg 03/16/22 22:33 Acetaminophen 325 Mg Tab PO Q4H PRN Pain MILD(1-3)/Fever >100.5/DIAZ Dextrose 50 ml 03/16/22 22:33 Dextrose 50% In Water (25gm) 50 Ml Syringe IV Q30MIN PRN Hypoglycemia Protocol Heparin Sodium (Porcine) 5,000 unit 03/19/22 10:00 03/20/22 09:20 Heparin 5,000 Unit/1 Ml Vial SUB-Q 5,000 unit Q12HR NICK Administration Sodium Chloride 1,000 mls @ 125 mls/hr 03/19/22 00:00 03/20/22 05:47 Nacl 0.9% 1000 Ml IV 125 mls/hr DIRECT NICK Administration Potassium Chloride 10 meq in 100 mls @ 100 mls/hr 03/20/22 08:00 03/20/22 09:17 Kcl 10meq/100ml IV 03/20/22 11:59 100 mls/hr Q1H NICK Administration Insulin Human Regular 0 units 03/17/22 07:30 03/20/22 08:27 Insulin Regular, Human 100 Units/1 Ml SUB-Q Not Given ACHS NICK Protocol Magnesium Hydroxide 30 ml 03/16/22 22:33 Magnesium Hydroxide (Mom) Oral Liqd Udc PO Q4H PRN Constipation Morphine Sulfate 2 mg 03/16/22 22:33 Morphine 2 Mg/1 Ml Inj IV Q4H PRN Pain, Moderate (4-6) Morphine Sulfate 4 mg 03/16/22 22:33 Morphine 4 Mg/1 Ml Inj IV Q4H PRN Pain , Severe (7-10) Ondansetron HCl 4 mg 03/16/22 22:33 03/17/22 01:15 Ondansetron 4 Mg/2 Ml Inj IV 4 mg Q8H PRN Administration Nausea And Vomiting Sodium Bicarbonate 1,300 mg 03/18/22 21:10 03/20/22 08:56 Sodium Bicarbonate 650 Mg Tab PO 1,300 mg TID NICK Administration Sodium Chloride 10 ml 03/17/22 10:00 03/20/22 09:20 Sodium Chloride 0.9% 10 Ml Flush Syringe IV 10 ml BID NICK Administration Sodium Chloride 10 ml 03/16/22 22:33 Sodium Chloride 0.9% 10 Ml Flush Syringe IV PRN PRN LINE FLUSH
[2022-03-20] MEDS ORDERED: MAGNESIUM SULFATE 4 GM/100 ML BAG IV ONE (18:31)
[2022-03-21 06:41] LABS: Calcium 7.2 mg/dL (8.4-10.2)
[2022-03-21 07:56] VITALS: BP 135/66
[2022-03-21] MEDS: INSULIN REGULAR, HUMAN 100 UNITS/1 ML SUB-Q SCH ×2 (08:24→12:08)
--- NOTE | 2022-03-21 08:34 | Progress Note ---
Assessment and Plan 1. Acute kidney injury: Admitted with very high creatinine level. Baseline renal function is unknown. Background CKD. Likely vasomotor CLARISSA in the setting of volume depletion. ATN. CT showed b/l nephrolithiasis and mild L hydronephrosis. IV fluids. Monitor renal function. Creatinine level is improving. Renal prognosis is guarded. Avoid nephrotoxic agents. Meds dosage based on GFR. 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 2. Hyponatremia: Likely 2/2 volume depletion. Sodium level is better. Monitor Sodium level. 3. FEN: Anion-gap metabolic acidosis, 2/2 CLARISSA + Metformin. IV fluids, Sod, bicarb, monitor. Replete lytes. Monitor lytes and volume status. 4. DM-2: Monitor. 5. H/o Hypertension: Monitor BP. F/u in 1-2 weeks. Subjective: Patient was seen and examined at the bedside. Doing ok. Daughter at the bedside. Examination: General appearance: well-developed, appears stated age, thin built, no distress HEENT: atraumatic, pupils equal Neck: trachea midline Respiratory: ctab Heart: S1S2, regular, no murmur Abdomen: soft, bowel sounds heard, NT Integumentary: no obvious rash noted Neurologic: conversing, able to move extremities Ext: no edema noted Subjective Date of service: 03/21/22 Principal diagnosis: elevated LFTs, N/V Objective - Vital Signs Vital signs: Vital Signs - 12hr 03/21/22 03/21/22 03/21/22 04:48 07:53 08:00 Temperature 97.6 F 97.9 F Pulse Rate 84 83 Pulse Rate [ 78 From Monitor] Respiratory 17 16 18 Rate Blood Pressure 160/73 135/66 O2 Sat by Pulse 98 98 95 Oximetry - Lab 03/19/22 03:47 03/21/22 04:38 Most recent lab results Calcium 7.2 mg/dL (8.4-10.2) L D 03/21/22 04:38 Magnesium 2.40 mg/dL (1.7-2.3) H 03/21/22 04:38 Urine Creatinine 38.1 mg/dL (0.1-20.0) H 03/18/22 21:50 Urine Sodium 73 mmol/L 03/18/22 21:50 Medications & Allergies - Medications Allergies/Adverse Reactions: Allergies No Known Allergies Allergy (Verified 03/18/22 10:12) Home Medications: Home Medications Medication Instructions Recorded Confirmed Last Taken Type Losartan [Cozaar] 50 mg PO QDAY 03/17/22 03/18/22 1 Day Ago History ~03/16/22 50 mg Rosuvastatin Calcium 20 mg PO DAILY 03/17/22 03/18/22 1 Day Ago History ~03/16/22 20 mg Famotidine [Pepcid] 10 mg PO BID #30 tablet 03/21/22 Unknown Rx Sodium Bicarbonate 1,300 mg PO TID #60 tablet 03/21/22 Unknown Rx glipiZIDE XL [Glucotrol Xl] 2.5 mg PO DAILY@0800 #30 tablet 03/21/22 Unknown Rx Active Medications: Generic Name Dose Route Start Last Admin Trade Name Freq PRN Reason Stop Dose Admin Acetaminophen 650 mg 03/16/22 22:33 Acetaminophen 325 Mg Tab PO Q4H PRN Pain MILD(1-3)/Fever >100.5/DIAZ Dextrose 50 ml 03/16/22 22:33 Dextrose 50% In Water (25gm) 50 Ml Syringe IV Q30MIN PRN Hypoglycemia Protocol Heparin Sodium (Porcine) 5,000 unit 03/19/22 10:00 03/20/22 21:13 Heparin 5,000 Unit/1 Ml Vial SUB-Q 5,000 unit Q12HR NICK Administration Sodium Chloride 1,000 mls @ 125 mls/hr 03/19/22 00:00 03/20/22 17:01 Nacl 0.9% 1000 Ml IV 125 mls/hr DIRECT NICK Administration Insulin Human Regular 0 units 03/17/22 07:30 03/21/22 08:24 Insulin Regular, Human 100 Units/1 Ml SUB-Q Not Given ACHS NICK Protocol Magnesium Hydroxide 30 ml 03/16/22 22:33 Magnesium Hydroxide (Mom) Oral Liqd Udc PO Q4H PRN Constipation Morphine Sulfate 2 mg 03/16/22 22:33 Morphine 2 Mg/1 Ml Inj IV Q4H PRN Pain, Moderate (4-6) Morphine Sulfate 4 mg 03/16/22 22:33 Morphine 4 Mg/1 Ml Inj IV Q4H PRN Pain , Severe (7-10) Ondansetron HCl 4 mg 03/16/22 22:33 03/17/22 01:15 Ondansetron 4 Mg/2 Ml Inj IV 4 mg Q8H PRN Administration Nausea And Vomiting Sodium Bicarbonate 1,300 mg 03/18/22 21:10 03/20/22 21:12 Sodium Bicarbonate 650 Mg Tab PO 1,300 mg TID NICK Administration Sodium Chloride 10 ml 03/17/22 10:00 03/20/22 21:18 Sodium Chloride 0.9% 10 Ml Flush Syringe IV 10 ml BID NICK Administration Sodium Chloride 10 ml 03/16/22 22:33 Sodium Chloride 0.9% 10 Ml Flush Syringe IV PRN PRN LINE FLUSH
[2022-03-21] MEDS: SODIUM BICARBONATE 650 MG TAB PO SCH (08:40)
[2022-03-21] MEDS: HEPARIN 5,000 UNIT/1 ML VIAL SUB-Q SCH (09:21)
--- NOTE | 2022-03-21 10:59 | Discharge Summary ---
Providers - Providers Date of Admission: 03/16/22 22:33 Date of discharge: 03/21/22 Attending physician: SUSU CORDERO 03/16/22 22:33 Consult to Dietitian/Nutrition [CONS] Routine Physician Instructions: Reason For Exam: Reason for Consult: Diet education 03/17/22 06:45 Consult to Physician [CONS] Routine Comment: Consulting Provider: JAC VALDIVIA Physician Instructions: Reason For Exam: Abnormal LFTs 03/17/22 13:33 Consult to Physician [CONS] Routine Comment: Consulting Provider: SHIKHA TYLER Physician Instructions: Reason For Exam: hyponatremia and CLARISSA 03/17/22 14:48 Midline [Consult to PICC Line RN] [CONS] Stat Reason For Exam: no IV access. Needs fluids Type Line:: Midline 03/20/22 18:32 Physical Therapy Evaluation and Treat [CONS] Routine Comment: Reason For Exam: General debility/evaluate and treat/DC needs Primary care physician: KIRK STEPHEN Hospitalization Reason for admission: Intractable nausea vomiting/acute gastritis Condition: Stable Pertinent studies: Chest x-ray; no acute abnormality noted CT abdomen and pelvis bilateral nephrolithiasis Mild left hydronephrosis without visualization of ureteral stones may be secondary to recently passed stone Tiny bilateral pleural effusions MRCP; cholecystectomy unremarkable MRCP simple appearing left renal cyst trace bilateral pleural effusion Hospital course: 59-year-old [place] male patient with significant past medical history of hypertension and diabetes mellitus was admitted through emergency room with intractable nausea vomiting and abdominal pain patient has been fully vaccinated against COVID-19 patient was admitted to the hospital symptomatically managed s ubsequently underwent imaging studies like abdominal and pelvis CT which revealed bilateral nephrolithiasis , mild left hydronephrosis. Evaluated by GI initially patient was n.p.o. later gradually improve the diet which patient tolerated MRCP was negative, advised to follow-up with him upon discharge Patient was also evaluated by cardiology for abnormal EKG evaluated and recommended medical management and follow-up for further evaluation Patient also had acute kidney injury with her creatinine 7.9 gradually improved to 1.8 today nephrology consulted, medications optimized Today patient is comfortable no new complaints ambulatory tolerating oral nutrition. Stable at discharge follow-up with consultants and primary care physician per schedule I spent total 65 minutes coordinating this discharge Discharge diagnosis: #Severe hyponatremia; sodium levels improving, today Na 132 Continue current management monitor electrolytes #CLARISSA, possible ATN; creatinine today is 5.1 Creatinine trending down Management per nephrology #Elevated BNP; no evidence of congestive heart failure Normal ejection fraction on echo Probably secondary to acute kidney injury #Bifascicular block on EKG (RBBB + LPFB); Chronic change, cardiology cleared --Bilateral nephrolithiasis; mild hydronephrosis Advised to follow primary care physician #Nausea and vomitinglipase elevated; Symptoms improved #Abnormal LFTs; Resolved #Hypertension; Well-controlled continue current management #Diabetes; Accu-Chek sliding scale coverage ADA diet Insulin as needed DVT prophylaxis Cleared by all the consultants Stable at discharge Stable at discharge Disposition: HOME / SELF CARE / HOMELESS Final Discharge Diagnosis (Prints w/discharge instructions): Acute kidney injury secondary to ATN. severe hyponatremia resolved. Elevated BNP; normal ejection fraction no congestive heart failure. Bifascicular heart block. Intractable nausea vomiting resolved. Hypertension. Transaminitis. Diabetes mellitus Time spent for discharge: 35 min Core Measure Documentation - Palliative Care Palliative Care/ Comfort Measures: Not Applicable - Core Measures Any of the following diagnoses?: none Exam - Constitutional Vitals: Temp Pulse Resp BP Pulse Ox 97.9 F 78 18 135/66 95 03/21/22 07:53 03/21/22 08:00 03/21/22 08:00 03/21/22 07:53 03/21/22 08:00 General appearance: Present: no acute distress, well-nourished - EENT Eyes: Present: PERRL, EOM intact - Neck Neck: Present: supple, normal ROM - Respiratory Respiratory: bilateral: rales - Extremities Extremities: no ischemia, No edema - Abdominal General gastrointestinal: Present: soft, non-tender, non-distended, normal bowel sounds - Integumentary Integumentary: Present: clear, warm - Musculoskeletal Musculoskeletal: strength equal bilaterally, generalized weakness - Psychiatric Psychiatric: appropriate mood/affect, cooperative - Neurologic Neurologic: moves all extremities Plan Activity: advance as tolerated Diet: diabetic Additional Instructions: Stop your metformin as kidney function is abnormal. Follow-up with primary care physician per schedule, follow-up with zmt operator, GI per schedule. If you have worsening symptoms contact MD or go to the nearest emergency room as needed. You have kidney stones, advised to follow urologist Dr. Cole per schedule Follow up with: KIRK STEPHEN MD [Primary Care Provider] - 7 Days SHIKHA TYLER MD [Staff Physician] - 7 Days NIDIA GUTIÉRREZ MD [Staff Physician] - 7 Days JAC VALDIVIA MD [Staff Physician] - 7 Days JULIAN COLE MD [Staff Physician] - 7 Days Prescriptions: Sodium Bicarbonate 1,300 mg PO TID #60 tablet
[2022-03-24 18:29] LABS: Albumin 3.5 g/dL (3.8-4.8); Gamma Globulin 0.8 g/dL (0.8-1.7)
[2022-03-25 22:02] LABS: Myeloperoxidase Antibody <1.0 AI (<1.0)
== END 2022-03-21 13:30 | disposition home or self-care (01) | DRG 683 ==
LOC: ED 18:52 → 4A 22:33
PROVIDERS: ADMIT Internal Medicine Geriatric Medicine; ATTEND Internal Medicine
DX: N17.0 Acute kidney failure with tubular necrosis (principal); E87.1 Hypo-osmolality and hyponatremia; I45.2 Bifascicular block; E87.2 Acidosis; N13.30 Unspecified hydronephrosis; R94.31 Abnormal electrocardiogram [ECG] [EKG]; E11.9 Type 2 diabetes mellitus without complications; E78.5 Hyperlipidemia, unspecified; N20.0 Calculus of kidney; I10 Essential (primary) hypertension; Z79.84 Long term (current) use of oral hypoglycemic drugs; Z79.899 Other long term (current) drug therapy; Z90.49 Acquired absence of other specified parts of digestive tract
CPT/HCPCS: 36415; 71045; 74177; 74181; 80048; 80053; 80074; 80076; 81001; 82550; 82570; 82962; 83520; 83615; 83690; 83735; 83880; 83930; 83935; 83970; 84132; 84165; 84300; 84484; 85007; 85025; 86021; 86038; 86160; 93005; 93306; G0378; Q9967; C8929; J0610; J1644; J1815; J1940; J2405; J3475; J3480; J7030; J7040